=== PATIENT | female | born 2000 | race Caucasian/White ===

== ENCOUNTER 2020-12-12 20:30 | Emergency (ER) | payer OTHER ==
[~2020-12-12] VITALS: Ht 165.1 cm; Wt 88.3 kg
[2020-12-12 21:54] LABS: BASO % 0.4 % (0.0-1.0); EOS # 0.1 10^3/uL (0.0-0.5); EOS % 0.6 % (0.0-3.0); HEMATOCRIT 42.3 % (36.0-47.0); HEMOGLOBIN 13.4 g/dl (12.0-15.5); LYMPH # 2.4 10^3/uL (1.5-5.0); LYMPH % 21.6 % (24.0-44.0); MEAN CORPUSCULAR HEMOGLOBIN 26.3 pg (27.0-33.0); MEAN CORPUSCULAR HGB CONC 31.7 g/dl (32.0-36.5); MEAN CORPUSCULAR VOLUME 83.1 fl (80.0-96.0); MONO % 8.9 % (2.0-8.0); NEUTROPHILS # 7.4 10^3/uL (1.5-8.5); PLATELET COUNT, AUTOMATED 323 10^3/uL (150-450); RED BLOOD COUNT 5.09 10^6/uL (4.00-5.40); WHITE BLOOD COUNT 10.9 10^3/uL (4.0-10.0)
[2020-12-12] MEDS ORDERED: MAALOX 30 ML SUSP *UDC PO ONE (22:45)
[2020-12-12] MEDS ORDERED: LIDOCAINE VISCOUS 2% SOLN 15ML UDC MT ONE (22:45)
[2020-12-12 23:10] VITALS: BP 145/74
[2020-12-12 23:25] LABS: ALBUMIN 4.1 GM/DL (3.2-5.2); ALT/SGPT 115 U/L (12-78); BILIRUBIN,DIRECT < 0.1 MG/DL (0.0-0.2); BILIRUBIN,TOTAL 0.2 MG/DL (0.2-1.0); BLOOD UREA NITROGEN 10 MG/DL (7-18); CALCIUM LEVEL 9.8 MG/DL (8.5-10.1); CARBON DIOXIDE LEVEL 26 MEQ/L (21-32); CHLORIDE LEVEL 106 MEQ/L (98-107); CK-MB VALUE MASS < 1.0 NG/ML (<3.6); CPK CREATINE PHOSPHOKINASE 264 U/L (26-192); CREATININE FOR GFR 0.67 MG/DL (0.55-1.30); GLOMERULAR FILTRATION RATE > 60.0 (>60); GLUCOSE, FASTING 90 MG/DL (70-100); HCG, SERUM QUANTITATIVE 49905 MIU/ML; LIPASE 102 U/L (73-393); MB/CK RELATIVE INDEX 0.38 (< OR =4); POTASSIUM SERUM 4.3 MEQ/L (3.5-5.1); SODIUM LEVEL 138 MEQ/L (136-145); TROPONIN I < 0.02 NG/ML (< 0.10)
--- NOTE | 2020-12-12 23:28 | REPVR ---
PROCEDURE INFORMATION: Exam: US First Trimester, Transabdominal Exam date and time: 12/12/2020 11:08 PM Age: 20 years old Clinical indication: Lmp or gestational age (in weeks): 10/23/2020; Other: Vaginal spotting; ; Additional info: Spotting and cramping; Lmp-10/23/20 TECHNIQUE: Imaging protocol: Real-time transabdominal obstetrical ultrasound of the maternal pelvis and a first trimester , less than 14 weeks 0 days, with image documentation. COMPARISON: No relevant prior studies available. FINDINGS: Gestation: Gestational sac within the uterus with pole and yolk sac. Embryonic/ heart rate: heartbeat of 120 bpm. Placenta: Small subchorionic hemorrhage measuring 14 x 4 x 16 mm. Amniotic fluid: Amniotic fluid is normal for gestational age. BIOMETRY: [place]-Rump length: [place]-rump length is 4.5 mm suggesting an age of 6 weeks 2 days. The EDC is 08/05/2021. MATERNAL: Uterus: Unremarkable. Cervix: Unremarkable. Left adnexa: The left ovary measures 3.3 x 2.5 x 3.4 cm with a cyst measuring 2.2 x 2.1 x 1.9 cm. Intraperitoneal space: No intraperitoneal free fluid. IMPRESSION: 1. Early single live intrauterine gestation with an estimated age of 6 weeks 2 days. The EDC is 08/05/2021. 2. Small subchorionic hemorrhage measuring 14 x 4 x 16 mm. 3. Left ovarian cyst measuring 2.2 x 2.1 x 1.9 cm. Electronically signed by: Feliberto Don On 12/12/2020 23:28:12 PM
--- NOTE | 2020-12-12 23:38 | REPVR ---
PROCEDURE INFORMATION: Exam: XR Chest Exam date and time: 12/12/2020 11:29 PM Age: 20 years old Clinical indication: Shortness of breath; Additional info: SOB, chest tightness TECHNIQUE: Imaging protocol: XR of the chest. Views: 1 view. COMPARISON: No relevant prior studies available. FINDINGS: Lungs: There is decreased inflation of the lungs. No focal infiltrates. Pleural spaces: Unremarkable. No pleural effusion. No pneumothorax. Heart/Mediastinum: Unremarkable. No cardiomegaly. Bones/joints: Unremarkable. IMPRESSION: Essentially negative chest. Electronically signed by: Feliberto Don On 12/12/2020 23:37:56 PM
[2020-12-12] MEDS ORDERED: CEPHALEXIN 500 MG CAP PO ONE (23:50)
[2020-12-12] MEDS ORDERED: CEPH500C PO (23:51)
== END 2020-12-13 00:27 | disposition home or self-care (01) ==
LOC: M ED 20:30
DX: O46.91 Antepartum hemorrhage, unspecified, first trimester (principal); O99.511 Diseases of the respiratory system complicating pregnancy, first trimester; O23.41 Unspecified infection of urinary tract in pregnancy, first trimester; O99.331 Smoking (tobacco) complicating pregnancy, first trimester; Z3A.01 Less than 8 weeks gestation of pregnancy

== ENCOUNTER → 2020-12-25 | Outpatient (REF) | payer OTHER ==
[~2020-12-25] MED LIST: CEPH500C PO
[2020-12-25 17:27] LABS: HEMATOCRIT 40.8 % (36.0-47.0); MEAN CORPUSCULAR HEMOGLOBIN 26.6 pg (27.0-33.0); MEAN CORPUSCULAR HGB CONC 31.9 g/dl (32.0-36.5); MEAN CORPUSCULAR VOLUME 83.4 fl (80.0-96.0); PLATELET COUNT, AUTOMATED 304 10^3/uL (150-450); RED BLOOD COUNT 4.89 10^6/uL (4.00-5.40); WHITE BLOOD COUNT 8.6 10^3/uL (4.0-10.0)
[2020-12-25 17:32] LABS: ALBUMIN 3.6 GM/DL (3.2-5.2); ALT/SGPT 25 U/L (12-78); BILIRUBIN,DIRECT 0.1 MG/DL (0.0-0.2); BILIRUBIN,TOTAL 0.3 MG/DL (0.2-1.0); CREATININE FOR GFR 0.63 MG/DL (0.55-1.30); GLOMERULAR FILTRATION RATE > 60.0 (>60); LDH LACTATE DEHYDROGENASE 128 U/L (84-246); TOTAL PROTEIN 6.6 GM/DL (6.4-8.2)
[2020-12-25 18:21] LABS: HEPATITIS C VIRUS ABY INDEX < 0.0 INDEX (<0.8)
[2020-12-25 18:22] LABS: HIV 1&2 SCREEN CENTAUR NEGATIVE (NEGATIVE)
== END ==
LOC: M PLALAB 15:25
PROVIDERS: ATTEND Advanced Practice Midwife
DX: Z34.81 Encounter for supervision of other normal pregnancy, first trimester (principal); Z3A.09 9 weeks gestation of pregnancy

== ENCOUNTER → 2021-01-05 | Outpatient (CLI) | payer OTHER ==
[2021-01-05 15:43] LABS: TOTAL PROTEIN,RANDOM URINE 15.5 MG/DL (0.0-12.0)
== END ==
LOC: M PLALAB 14:06
PROVIDERS: ATTEND Specialist
DX: O99.281 Endocrine, nutritional and metabolic diseases complicating pregnancy, first trimester (principal); E03.9 Hypothyroidism, unspecified; Z3A.09 9 weeks gestation of pregnancy

== ENCOUNTER → 2021-01-22 | Outpatient (REF) | payer OTHER | LOC: M SFHCPLAZ 18:27 | PROVIDERS: ATTEND Advanced Practice Midwife | DX: O99.282 Endocrine, nutritional and metabolic diseases complicating pregnancy, second trimester (principal) ==

== ENCOUNTER → 2021-01-26 | Outpatient (REF) | payer OTHER ==
[2021-01-26 17:43] LABS: ALBUMIN 3.3 GM/DL (3.2-5.2); ALT/SGPT 36 U/L (12-78); BILIRUBIN,TOTAL 0.3 MG/DL (0.2-1.0); BLOOD UREA NITROGEN 8 MG/DL (7-18); CARBON DIOXIDE LEVEL 23 MEQ/L (21-32); CHLORIDE LEVEL 105 MEQ/L (98-107); CREATININE FOR GFR 0.75 MG/DL (0.55-1.30); GLOMERULAR FILTRATION RATE > 60.0 (>60); GLUCOSE, FASTING 107 MG/DL (70-100); POTASSIUM SERUM 4.1 MEQ/L (3.5-5.1); SODIUM LEVEL 135 MEQ/L (136-145); TOTAL PROTEIN 6.9 GM/DL (6.4-8.2)
[2021-01-26 17:46] LABS: FREE T4 1.1 NG/DL (0.76-1.46); THYROID STIMULATING HORMONE 3.22 uIU/ML (0.358-3.740)
== END ==
LOC: M PLALAB 14:47
PROVIDERS: ATTEND Advanced Practice Midwife
DX: O99.282 Endocrine, nutritional and metabolic diseases complicating pregnancy, second trimester (principal); Z87.19 Personal history of other diseases of the digestive system; Z87.59 Personal history of other complications of pregnancy, childbirth and the puerperium

== ENCOUNTER 2021-02-20 22:13 | Emergency (ER) | payer OTHER ==
[~2021-02-20] VITALS: Ht 165.1 cm; Wt 84.3 kg
[2021-02-20] MEDS ORDERED: ONDA4TAB6 PO (22:21)
[2021-02-20] MEDS ORDERED: LEVO25TA5 PO (22:21)
[2021-02-21] MEDS ORDERED: METOCLOPRAMIDE INJ 10MG/2ML VIAL (J2765 PER 1) IV ONE (01:35)
[2021-02-21] MEDS ORDERED: NS 1,000 ML IV ONE (01:35)
[2021-02-21 01:56] LABS: BASO % 0.2 % (0.0-1.0); EOS # 0.1 10^3/uL (0.0-0.5); EOS % 0.8 % (0.0-3.0); HEMATOCRIT 39.3 % (36.0-47.0); HEMOGLOBIN 13.1 g/dl (12.0-15.5); LYMPH # 2.3 10^3/uL (1.5-5.0); LYMPH % 25.2 % (24.0-44.0); MEAN CORPUSCULAR HEMOGLOBIN 27.2 pg (27.0-33.0); MEAN CORPUSCULAR HGB CONC 33.3 g/dl (32.0-36.5); MEAN CORPUSCULAR VOLUME 81.7 fl (80.0-96.0); MONO # 0.8 10^3/uL (0.0-0.8); MONO % 8.6 % (2.0-8.0); NEUTROPHILS # 5.8 10^3/uL (1.5-8.5); PLATELET COUNT, AUTOMATED 295 10^3/uL (150-450); RED BLOOD COUNT 4.81 10^6/uL (4.00-5.40)
[2021-02-21] MEDS ORDERED: ACETAMINOPHEN TAB 650MG DOSE (2X325MG) PO ONE (02:20)
[2021-02-21 02:22] LABS: ALBUMIN 3.2 GM/DL (3.2-5.2); ALT/SGPT 26 U/L (12-78); BILIRUBIN,DIRECT < 0.1 MG/DL (0.0-0.2); BILIRUBIN,TOTAL 0.3 MG/DL (0.2-1.0); BLOOD UREA NITROGEN 7 MG/DL (7-18); CALCIUM LEVEL 8.4 MG/DL (8.5-10.1); CARBON DIOXIDE LEVEL 27 MEQ/L (21-32); CHLORIDE LEVEL 104 MEQ/L (98-107); CREATININE FOR GFR 0.56 MG/DL (0.55-1.30); GLOMERULAR FILTRATION RATE > 60.0 (>60); GLUCOSE, FASTING 74 MG/DL (70-100); LIPASE 108 U/L (73-393); SODIUM LEVEL 137 MEQ/L (136-145); TOTAL PROTEIN 6.5 GM/DL (6.4-8.2)
--- NOTE | 2021-02-21 03:59 | REPVR ---
PROCEDURE INFORMATION: Exam: US Abdomen, Limited; Right Upper Quadrant Exam date and time: 02/21/2021 1:59 AM Age: 20 years old Clinical indication: Abdominal pain; Epigastric; Prior surgery; Surgery date: 6+ months; Surgery type: S/P cholecystectomy; Additional info: Ruq pain TECHNIQUE: Imaging protocol: US abdomen. Real time ultrasound with image documentation. Limited exam focused on the right upper quadrant. COMPARISON: No relevant prior studies available. FINDINGS: Liver: The liver demonstrates no focal defects. Gallbladder: Status post cholecystectomy. Common bile duct: The CBD measures 3 mm. Pancreas: The visualized pancreas appears normal. Right kidney: The right kidney measures 10.4 cm with no hydronephrosis. IMPRESSION: 1. Status post cholecystectomy. 2. Otherwise negative right upper quadrant sonogram. Electronically signed by: Feliberto Don On 02/21/2021 03:59:36 AM
[2021-02-21] MEDS ORDERED: METO-535 PO (04:24)
[2021-02-21 04:36] VITALS: BP 110/59
== END 2021-02-21 04:39 | disposition home or self-care (01) ==
LOC: M ED 22:13
DX: O21.9 Vomiting of pregnancy, unspecified (principal); O99.280 Endocrine, nutritional and metabolic diseases complicating pregnancy, unspecified trimester; O99.330 Smoking (tobacco) complicating pregnancy, unspecified trimester
CPT/HCPCS: 76705; 80048; 80076; 82239; 83690; 85025; 96361; 96374; 99284; J2765

== ENCOUNTER → 2021-03-02 | Outpatient (REF) | payer OTHER ==
[~2021-03-02] MED LIST changes: +LEVO25TA5 PO; +METO-535 PO; +ONDA4TAB6 PO
== END ==
LOC: M SFHCPLAZ 14:53
PROVIDERS: ATTEND Physician Assistant
DX: R09.81 Nasal congestion (principal)
CPT/HCPCS: 87426; G0463; U0003

== ENCOUNTER → 2021-03-19 | Outpatient (CLI) | payer OTHER ==
--- NOTE | 2021-03-19 14:37 | REP ---
INDICATION: ANATOMY. COMPARISON: 12/12/2020. TECHNIQUE: Multiple ultrasonographic images of the gravid uterus. FINDINGS: There is a single intrauterine gestation. position is variable. heart rate is 146 beats per minute. The placenta is fundal. There is no placenta previa. The umbilical cord inserts centrally onto the placenta. There is a three-vessel cord. Subjectively the amniotic fluid volume is normal. The cervix measures 3.9 cm length. The composite ultrasound gestational age by the study today is 21 weeks 0 days with an JEWEL of 07/30/2021. Gestational age by the 1st ultrasound is 20 weeks 0 days with an JEWEL of 08/06/2021. Gestational age by LMP is 21 weeks 0 days with an JEWEL of 07/30/2021. Estimated weight is 394 g/0 lb, 13 oz. This is the 46th percentile for 21 weeks 0 days. The following anatomic structures are identified and are unremarkable: Cranium, cavum septum pellucidum, falx, intracranial ventricles, choroid plexus, cerebellum, cisterna magna, facial profile, orbits, upper lip, lungs, cardiac rhythm, four-chamber heart, cardiac right left ventricular outflow tracts, diaphragm, stomach, abdominal wall, right and left kidneys, bladder, spine, or left upper extremities, right left lower extremities, 3 vessel cord. IMPRESSION: No anomalies are identified. <Electronically signed by Shad Miguel > 03/19/21 [id number]
== END ==
LOC: M WHC 11:25
PROVIDERS: ATTEND Advanced Practice Midwife
DX: O99.282 Endocrine, nutritional and metabolic diseases complicating pregnancy, second trimester (principal); Z3A.21 21 weeks gestation of pregnancy; E88.9 Metabolic disorder, unspecified

== ENCOUNTER → 2021-04-22 | Outpatient (CLI) | payer OTHER ==
[2021-04-22 15:27] LABS: HEMATOCRIT 37.2 % (36.0-47.0); MEAN CORPUSCULAR HEMOGLOBIN 27.5 pg (27.0-33.0); MEAN CORPUSCULAR HGB CONC 32.3 g/dl (32.0-36.5); MEAN CORPUSCULAR VOLUME 85.3 fl (80.0-96.0); PLATELET COUNT, AUTOMATED 301 10^3/uL (150-450); RED BLOOD COUNT 4.36 10^6/uL (4.00-5.40); WHITE BLOOD COUNT 10.2 10^3/uL (4.0-10.0)
[2021-04-22 16:00] LABS: ALBUMIN 2.8 GM/DL (3.2-5.2); ALT/SGPT 23 U/L (12-78); BILIRUBIN,DIRECT < 0.1 MG/DL (0.0-0.2); BILIRUBIN,TOTAL 0.3 MG/DL (0.2-1.0); FREE T4 1.03 NG/DL (0.76-1.46); GLUCOSE CHALLENGE TEST 1 HOUR 91 MG/DL (LESS THAN 140); TOTAL PROTEIN 6.7 GM/DL (6.4-8.2)
== END ==
LOC: M PLALAB 11:05
PROVIDERS: ATTEND Advanced Practice Midwife
DX: O99.282 Endocrine, nutritional and metabolic diseases complicating pregnancy, second trimester (principal); Z36.89 Encounter for other specified antenatal screening; E03.9 Hypothyroidism, unspecified
CPT/HCPCS: 36415; 80076; 81002; 82239; 82950; 84439; 84443; 85027; 86850; 86900; 86901; 87086; G0463

== ENCOUNTER → 2021-06-03 | Outpatient (CLI) | payer OTHER ==
[~2021-06-03] MED LIST changes: +ACET325C5 PO; +D-ME1CAP36 PO; +MELA10CA PO; +PROM25TA12 PO; +TUMS500C PO; +URSO300C3 PO
[2021-06-03 17:54] LABS: ALBUMIN 2.7 GM/DL (3.2-5.2); BILIRUBIN,DIRECT 0.1 MG/DL (0.0-0.2); BILIRUBIN,TOTAL 0.3 MG/DL (0.2-1.0); TOTAL PROTEIN 6.5 GM/DL (6.4-8.2)
== END ==
LOC: M PLALAB 15:15
PROVIDERS: ATTEND Obstetrics & Gynecology
DX: Z87.59 Personal history of other complications of pregnancy, childbirth and the puerperium (principal)
CPT/HCPCS: 36415; 80076; 82239; G0463

== ENCOUNTER → 2021-06-24 | Outpatient (CLI) | payer OTHER ==
[~2021-06-24] MED LIST changes: -ACET325C5 PO; -D-ME1CAP36 PO; -MELA10CA PO; -PROM25TA12 PO; -TUMS500C PO; -URSO300C3 PO
--- NOTE | 2021-06-24 13:57 | REP ---
INDICATION: GROWTH LIVER AND BILIARY TRACT DISORDER IN . COMPARISON: 03/19/2021. TECHNIQUE: Real-time sonographic evaluation of the gravid uterus performed. FINDINGS: Estimated gestational age is34 weeks 6 days, EDC 07/30/2021. Today's measurements indicate appropriate growth. Presentation: Cephalic Placenta fundal, grade 2, without evidence of placenta previa. heart rate is recorded at 143 beats per minute. Amniotic fluid is subjectively normal. OH 14.5, normal 7.9-24.9. Cervix is not visualized due to shadowing from the cranium. SD ratio umbilical artery 2.17, normal 1.69-3.60. RI 0.54, normal 0.46-0.72. Biometry chart: BPD: 85 mm, 34 weeks 3 days, 43rd percentile. HC: 311 mm, 34 weeks 5 days, 47 percentile AC: 315 mm, 35 weeks 3 days, 57th percentile Femur length: 66 mm, 34 weeks 1 days, 39th percentile HC to AC ratio: 0.99, normal range 0.94-1.13. Estimated weight: 2541g, 46th percentile. IMPRESSION: Viable single intrauterine gestation as above. <Electronically signed by Shad Garcia > 06/24/21 0006
== END ==
LOC: M WHC 09:27
PROVIDERS: ATTEND Advanced Practice Midwife
DX: O26.613 Liver and biliary tract disorders in pregnancy, third trimester (principal); Z3A.34 34 weeks gestation of pregnancy

== ENCOUNTER → 2021-06-30 | Outpatient (CLI) | payer OTHER ==
[~2021-06-30] MED LIST changes: +ACET325C5 PO; +D-ME1CAP36 PO; +MELA10CA PO; +PROM25TA12 PO; +TUMS500C PO; +URSO300C3 PO
[2021-06-30 15:34] LABS: ALBUMIN 2.5 GM/DL (3.2-5.2); BILIRUBIN,DIRECT 0.2 MG/DL (0.0-0.2); BILIRUBIN,TOTAL 0.4 MG/DL (0.2-1.0); TOTAL PROTEIN 6.3 GM/DL (6.4-8.2)
== END ==
LOC: M PLALAB 12:32
PROVIDERS: ATTEND Obstetrics & Gynecology
DX: O26.613 Liver and biliary tract disorders in pregnancy, third trimester (principal); K76.0 Fatty (change of) liver, not elsewhere classified; Z3A.35 35 weeks gestation of pregnancy
CPT/HCPCS: 36415; 59025; 80076; 82239; 87081; G0463

== ENCOUNTER 2021-07-04 22:02 | Outpatient (CLI) | payer OTHER ==
[~2021-07-04] VITALS: Ht 165.1 cm; Wt 85.4 kg
[~2021-07-04 22:02] MED LIST changes: -ACET325C5 PO; -D-ME1CAP36 PO; -MELA10CA PO; -PROM25TA12 PO; -TUMS500C PO; -URSO300C3 PO
[2021-07-04 22:23] VITALS: BP 116/77
[2021-07-04] MEDS ORDERED: TUMS500C PO (22:37)
[2021-07-04] MEDS ORDERED: D-ME1CAP36 PO (22:37)
[2021-07-04] MEDS ORDERED: URSO300C3 PO (22:38)
[2021-07-04] MEDS ORDERED: PROM25TA12 PO (22:42)
--- NOTE | 2021-07-04 23:26 | IPNPDOC ---
Text Note Date of Service The patient was seen on 07/04/21. NOTE S: Pt is a 21yo G 3 P 0111 at 36W2D EGA who presented to the ER with a swollen, painful toe. The patient was sent to labor and delivery triage because she also complained of intermittent pelvic cramping that was worsening over the past few days. Patient denies contractions leaking of fluid, endorses light pink spotting after wiping. Reports good movement O: BP116/77 HR106 T97.7 FHT 120 mod +accel no decel TOCO irregular, irritable SVE FT/long/high, posterior and firm A/P: Pt is a 21yo at 36w2d EGA who presents with toe pain and cramping Dispo: d/c'ed to ER for evaluation of toe pain. Pt has appt in office for NST a nd care. VS,Fishbone, I+O VS, Fishbone, I+O Vital Signs Date Time Temp Pulse Resp B/P (MAP) Pulse Ox O2 Delivery O2 Flow Rate FiO2 07/04/21 22:23 97.7 106 18 116/77 (90) GINA DIA MD Jul 04, 2021 23:26
== END 2021-07-04 23:18 | disposition home or self-care (01) ==
LOC: M LDO 22:02
PROVIDERS: ATTEND Obstetrics & Gynecology
DX: O26.893 Other specified pregnancy related conditions, third trimester (principal); R25.2 Cramp and spasm; Z3A.36 36 weeks gestation of pregnancy
CPT/HCPCS: 59025; G0378; G0463; U0002

== ENCOUNTER 2021-07-04 23:39 | Emergency (ER) | payer OTHER ==
[~2021-07-04] VITALS: Ht 165.1 cm; Wt 84.5 kg
[~2021-07-04 23:39] MED LIST changes: +D-ME1CAP36 PO; +PROM25TA12 PO; +TUMS500C PO; +URSO300C3 PO
[2021-07-04 23:40] VITALS: BP 111/74
--- OUTSIDE RECORDS SUMMARY | 2021-07-04 23:45 | CCD ---
Author Author [facility] Organization [facility] Address Unknown Phone Unavailable Care Team Providers Care Litigation Paralegal Name Role Phone Caitlin Hassan Unavailable PROBLEMS Type Condition ICD9-CM Code [id number] Code Onset Dates Condition S tatus W/U Status Risk SNOMED Code Notes Problem Scoliosis, unspecified scoliosis type, unspecifi ed spinal region M41.9 Active confirmed 513556470 Problem Anxiety F41.9 Active confirmed 06840460 Problem Supervision of other normal Z34.80 Ac tive confirm 217174551 Problem History of hypothyroidism Z86.39 Active confirmed 349918844 ALLERGIES No Known Allergies ENCOUNTERS from 1998 to 2021-05-07 Encounter Location Date Provider Diagnosis [facility] [address] [place] [address] [place] [address] Apr, Caitlin Hassan Dysuria R30.0 ; Othe r specified diseases and conditions complicating O99.891 and 25 weeks gestation of Z3A.25 IMMUNIZATIONS No Information SOCIAL HISTORY Tobacco Use: Social History Observation Description Date Details (start date - stop date) Former Smoker Sex Assigned At : Social History Observation Description Sex Assigned At Unknown Education: Question Answer Notes Level of Education: Not Finished College Audit Question Answer Notes Total Score: 0 Interpretation: Alcohol Education Language: Question Answer Notes Languages spoken: Divehi Baptism: Question Answer Notes Baptism 99 Other Mormon Sexual Hx: Question Answer Notes Had sex in the last 12 months (vaginal, oral, or anal)? Yes LMP: 10/2020 Have you ever had an STD? Yes Prevention Strategies discussed: Other with Men only Use protection? No GC? Yes Chlamydia? Yes Drug and Alcohol Question Answer Notes Total Score: 0 Interpretation: No problems reported Tobacco Use: Question Answer Notes Are you a: former smoker quit 10/2020 How long has it been since you last smoked? 1-3 months REASON FOR REFERRAL No Information VITAL SIGNS Weight 185.8 lbs Apr, Weight-kg 84.28 kg Apr, Height 65 in Apr, BMI 30.919 kg/m2 Apr, Blood pressure systolic 118 mm Hg Apr, Blood pressure diastolic 76 mm Hg Apr, MEDICATIONS Medication SIG (Take, Route, Frequency, Duration) Notes Start Da te End Date Status 27-1 MG 1 tablet Orally Once a day Active Amoxicillin 875 MG 1 tablet Orally Twice a day for 7 day(s) Feb, Not-Taking Unisom 25 MG 1 tablet at bedtime as needed Orally Once a day for 30 day(s) Active Vitamin B6 100 MG 1 tablet Orally Once a day for 30 day(s) Active Macrobid 100 MG 1 capsule twice a day Orally twice DAY for 7 da ys Apr, Active Ondansetron 4 MG 1 tablet on the tongue and a llow to dissolve Orally every 6 hours as needed for nausea for 30 day(s) Feb, Active Levothyroxine Sodium 50 MCG 1 tablet in the morning on an empty stomach Orally Once a day for 30 day(s) December, Not-Pantera ing Levothyroxine Sodium 25 MCG 1 tablet in the morning on an empty stomach Orally Once a day for 60 day(s) Feb, Active Robitussin Chest Congestion 100 MG/5ML 10 ml as needed Orally every 4 hrs Not-Taking PROCEDURES from 1998 to 2021-05-07 Procedure Date Ordered Result Body Site URINE-NO MICRO 2021-04-22 N/A RESULTS No Results REASON FOR VISIT 4WK PN MEDICAL (GENERAL) HISTORY Type Description Date Medical History Cholestasis with prior Medical History scoliosis Surgical History Adenoidectomy Surgical History Cholecystectomy 2017 Surgical History wisdom tooth extraction 2013 Hospitalization History childbirth Hospitalization History Cholestasis, admitted x 1 week 2017 Goals Section No Information Health Concerns No Information MEDICAL EQUIPMENT No Information MENTAL STATUS No Information FUNCTIONAL STATUS No Information ASSESSMENTS Encounter Date Diagnosis Assessment Notes Treatment Notes Treatm ent Clinical Notes Apr, Dysuria (ICD-10 - R30.0) Apr, Other specified diseases and conditions complicating (ICD-10 - O99.891) Apr, 25 weeks gestation of (ICD-10 - Z3A.25 ) PLAN OF TREATMENT Medication Medication Name Sig Start Date Stop Date Macrobid 100 MG 1 capsule twice a day Orally twice DAY for 7 da ys Apr, Treatment Notes Test Name Order Date URINE CULTURE 2021-04-22 Next Appt Details 4 Weeks Reason:pn Provider Name:Roderick Balderas, 2021-05-20 03:30:00 PM, [address] [place] [address], [address] [place] [address], [place], [address], Provider Name:Caitlin Hassan, 2021-06-03 0 2:00:00 PM, [address] [place] [address], [address] [place] [address], [place], [address], Provider Name:Chastity Vaughn, 2021-06-17 02:40:00 PM, [address] [place] [address], , [place], [address], Follow Up:4 Weekspn Insurance Providers Payer Name Payer Address Payer Phone Insured Name Patient Relati onship to Insured Coverage Start Date Coverage End Date [facility] [employer] [address] [place] [id number] PAUL RAHMAN self
--- OUTSIDE RECORDS SUMMARY | 2021-07-04 23:45 | CCD ---
Author Author [facility] Organization [facility] Address Unknown Phone Unavailable Care Team Providers Care Brazer Helper Induction Name Role Phone Caitlin Hassan Unavailable PROBLEMS Type Condition ICD9-CM Code [id number] Code Onset Dates Condition S tatus W/U Status Risk SNOMED Code Notes Problem Anxiety F41.9 Active confirmed 04377835 Problem Obstruction of bile duct K83.1 Active confirmed 15067895 Problem Supervision of other normal Z34.80 Ac tive confirm 459473868 Problem History of hypothyroidism Z86.39 Active confirmed 930884016 Problem Scoliosis, unspecified scoliosis type, unspecifi ed spinal region M41.9 Active confirmed 280692247 ALLERGIES No Known Allergies ENCOUNTERS from 1998 to 2021-06-26 Encounter Location Date Provider Diagnosis [facility] [address] [place] [address] [place] [address] May, Caitlin Mo Personal history of other diseases of the digestive system Z87.19 and Personal history of other complications of , childbirth and the puerperium Z87.59 IMMUNIZATIONS Vaccine Route Administration Date Status TDAP 0.5mL Boostrix IM Intramuscular Jun 17, 2021 Administere d SOCIAL HISTORY Tobacco Use: Social History Observation Description Date Details (start date - stop date) Former Smoker Sex Assigned At : Social History Observation Description Sex Assigned At Unknown Education: Question Answer Notes Level of Education: Not Finished College Audit Question Answer Notes Total Score: 0 Interpretation: Alcohol Education Language: Question Answer Notes Languages spoken: Cambodian Catholic: Question Answer Notes Catholic 99 Other Adventism Drug and Alcohol Question Answer Notes Total Score: 0 Interpretation: No problems reported Alcohol Screening: Question Answer Notes Did you have a drink containing alcohol in the past year? No Points 0 Interpretation Negative Tobacco Use: Question Answer Notes Are you a: former smoker quit 10/2020 How long has it been since you last smoked? 1-3 months REASON FOR REFERRAL No Information VITAL SIGNS Weight 187.2 lbs May, Weight-kg 84.91 kg May, Height 65 in May, BMI 31.152 kg/m2 May, Blood pressure systolic 120 mm Hg May, Blood pressure diastolic 70 mm Hg May, MEDICATIONS Medication SIG (Take, Route, Frequency, Duration) Notes Start Da te End Date Status Unisom 25 MG 1 tablet at bedtime as needed Orally Once a day for 30 day(s) Active Amoxicillin 875 MG 1 tablet Orally Twice a day for 7 day(s) Feb, Not-Taking Ursodiol 300 MG 1 capsule Orally Twice a day for 30 day(s) Jun, Active Vitamin B6 100 MG 1 tablet Orally Once a day for 30 day(s) Active Robitussin Chest Congestion 100 MG/5ML 10 ml as needed Orally every 4 hrs Not-Taking Promethazine HCl 12.5 MG 1 tablet as needed Orally every 6 hrs f or 30 day(s) May, Active Levothyroxine Sodium 25 MCG 1 tablet in the morning on an empty stomach Orally Once a day for 60 day(s) Feb, Not-Pantera ing 27-1 MG 1 tablet Orally Once a day Active Levothyroxine Sodium 50 MCG 1 tablet in the morning on an empty stomach Orally Once a day for 30 day(s) December, Not-Pantera ing PROCEDURES No Information RESULTS Component Value Reference Range LIVER PROFILE Reviewed date:06/13/2021 21:54:59 Interpretation: Performing Lab:[facility], [facility] [id number] , ,[place] [address] AST/SGOT 19 7-37 ALT/SGPT 31 12-78 ALKALINE PHOSPHATASE 241 45-117 BILIRUBIN,TOTAL 0.3 0.2-1.0 BILIRUBIN,DIRECT 0.1 0.0-0.2 TOTAL PROTEIN 6.5 6.4-8.2 ALBUMIN 2.7 3.2-5.2 ALBUMIN/GLOBULIN RATIO 0.7 1.2-2.2 BILE ACIDS FRACTIONATED Reviewed date:06/17/2021 17:00:32 Interpretation: Performing Lab:[facility], [facility] [address] [facility] [address] , ,[place] [address] BILE ACIDS FRACTIONATED 18.8 0.0-10.0 REASON FOR VISIT 2 WK PN MEDICAL (GENERAL) HISTORY Type Description Date Medical History Cholestasis with prior Medical History scoliosis Surgical History Adenoidectomy Surgical History Cholecystectomy 2017 Surgical History wisdom tooth extraction 2013 Hospitalization History childbirth Hospitalization History Cholestasis, admitted x 1 week 2016 Goals Section No Information Health Concerns No Information MEDICAL EQUIPMENT No Information MENTAL STATUS No Information FUNCTIONAL STATUS No Information ASSESSMENTS Encounter Date Diagnosis Assessment Notes Treatment Notes Treatm ent Clinical Notes May, Personal history of other di seases of the digestive system (ICD-10 - Z87.19) May, Personal history of other co mplications of , childbirth and the puerperium (ICD-10 - Z87.59) PLAN OF TREATMENT Next Appt Details Provider Name:Brigette Malin, 2021-06-30 11:00:00 AM, [address] [place] [phone], [place], [address], Provider Name:Alfred Castellanos, 10:00:00 AM, [address] [place] [phone], [place], [address], Provider Name:Chastity Vaughn, 2021-07-17 02:40:00 PM, [address] [place] [phone], [place], [address], Insurance Providers Payer Name Payer Address Payer Phone Insured Name Patient Relati onship to Insured Coverage Start Date Coverage End Date [facility] [employer] [address] [place] [id number] PAUL RAHMAN self
--- OUTSIDE RECORDS SUMMARY | 2021-07-04 23:45 | CCD ---
Author Author [facility] Organization [facility] Address Unknown Phone Unavailable Care Team Providers Care Glass Handler Name Role Phone IsaiasKirk Unavailable PROBLEMS Type Condition ICD9-CM Code [id number] Code Onset Dates Condition S tatus W/U Status Risk SNOMED Code Notes Problem Scoliosis, unspecified scoliosis type, unspecifi ed spinal region M41.9 Active confirmed 886848172 Problem Anxiety F41.9 Active confirmed 24630989 Problem Supervision of other normal Z34.80 Ac tive confirm 668908463 Problem History of hypothyroidism Z86.39 Active confirmed 617308459 ALLERGIES No Known Allergies ENCOUNTERS from 1998 to 2021-06-04 Encounter Location Date Provider Diagnosis [facility] [address] [place] [address] [place] [address] May, Kirk Esparza IMMUNIZATIONS No Information SOCIAL HISTORY Tobacco Use: Social History Observation Description Date Details (start date - stop date) Former Smoker Sex Assigned At : Social History Observation Description Sex Assigned At Unknown Education: Question Answer Notes Level of Education: Not Finished College Audit Question Answer Notes Total Score: 0 Interpretation: Alcohol Education Language: Question Answer Notes Languages spoken: Barbadian Synagogue: Question Answer Notes Synagogue 99 Other Worship Drug and Alcohol Question Answer Notes Total [...] REASON FOR REFERRAL No Information VITAL SIGNS No information MEDICATIONS Medication SIG (Take, Route, Frequency, Duration) [...] day for 60 day(s) Feb, Not-Pantera ing Robitussin Chest Congestion 100 MG/5ML 10 ml as needed Orally every 4 hrs Not-Taking Unisom 25 MG 1 tablet at bedtime as needed Orally Once a day for 30 day(s) Active Ondansetron 4 MG 1 tablet on the tongue and a llow to dissolve Orally every 6 hours as needed for nausea for 30 day(s) Feb, Active Vitamin B6 100 MG 1 tablet Orally Once a day for 30 day(s) Active Amoxicillin 875 MG 1 tablet Orally Twice a day for 7 day(s) Feb, Not-Taking PROCEDURES No Information RESULTS No Results REASON FOR VISIT concerns MEDICAL (GENERAL) HISTORY Type Description Date Medical History Cholestasis with prior Medical History scoliosis Surgical History Adenoidectomy Surgical History Cholecystectomy 2017 Surgical History wisdom tooth extraction 2013 Hospitalization History childbirth Hospitalization History Cholestasis, admitted x 1 week 2017 Goals Section No Information Health Concerns No Information MEDICAL EQUIPMENT No Information MENTAL STATUS No Information FUNCTIONAL STATUS No Information ASSESSMENTS No Information PLAN OF TREATMENT Next Appt Details Provider Name:Chastity Vaughn, 2021-06-17 02:40:00 PM, [address] [place], [place] [id number] [address], [address], Provider Name:Chastity Vaughn, 2021-07-03 02:40:00 PM, [address] [place], [place] [phone], [place], [address], Provider Name:Chastity Vaughn, 2021-07-17 02:40:00 PM, [address] [place], [place] [address] [place] [address], [address], Insurance Providers Payer Name Payer Address Payer Phone Insured Name Patient Relati onship to Insured Coverage Start Date Coverage End Date [facility] [address] [place] [id number] PAUL RAHMAN self
--- OUTSIDE RECORDS SUMMARY | 2021-07-04 23:45 | CCD ---
Author Author [facility] Organization [facility] Address Unknown Phone Unavailable Care Team Providers Care Truck Hop Name Role Phone Brigette Malin Unavailable PROBLEMS Type Condition ICD9-CM Code [id number] Code Onset Dates Condition S tatus W/U Status Risk SNOMED Code Notes Problem Scoliosis, unspecified scoliosis type, unspecifi ed spinal region M41.9 Active confirmed 317479105 Problem Anxiety F41.9 Active confirmed 61417197 Problem Supervision of other normal Z34.80 Ac tive confirm 369249192 Problem History of hypothyroidism Z86.39 Active confirmed 448434735 ALLERGIES No Known Allergies ENCOUNTERS from 1998 to 2021-06-05 Encounter Location Date Provider Diagnosis [facility] [address] [place] [address] [place] [address] May, Brigette Malin Nausea with vomit ing, unspecified R11.2 IMMUNIZATIONS No Information SOCIAL HISTORY Tobacco Use: Social History Observation Description Date Details (start date - stop date) Former Smoker Sex Assigned At : Social History Observation Description Sex Assigned At Unknown Education: Question Answer Notes Level of Education: Not Finished College Audit Question Answer Notes Total Score: 0 Interpretation: Alcohol Education Language: Question Answer Notes Languages spoken: Malay Yarsanism: Question Answer Notes Yarsanism 99 Other Sabianist Drug and Alcohol Question Answer Notes Total [...] Notes Start Da te End Date Status Promethazine HCl 12.5 MG 1 tablet as needed Orally every 6 hrs f or 30 day(s) May, Active Levothyroxine Sodium 50 MCG 1 tablet [...] Once a day for 30 day(s) Active 27-1 MG 1 tablet Orally Once a day Active Vitamin B6 100 MG 1 tablet Orally Once a day for 30 day(s) Active Amoxicillin 875 MG 1 tablet Orally Twice a day for 7 day(s) Feb, Not-Taking PROCEDURES No Information RESULTS No Results REASON FOR VISIT No Information MEDICAL (GENERAL) HISTORY Type Description Date Medical History Cholestasis with prior Medical History scoliosis Surgical History Adenoidectomy Surgical History Cholecystectomy 2016 Surgical History wisdom tooth extraction 2013 Hospitalization History childbirth Hospitalization History Cholestasis, admitted x 1 week 2017 Goals Section No Information Health Concerns No Information MEDICAL EQUIPMENT No Information MENTAL STATUS No Information FUNCTIONAL STATUS No Information ASSESSMENTS Encounter Date Diagnosis Assessment Notes Treatment Notes Treatm ent Clinical Notes May, Nausea with vomiting, unspecified (ICD-10 - R11. 2) PLAN OF TREATMENT Medication Medication Name Sig Start Date Stop Date Promethazine HCl 12.5 MG 1 tablet as needed Orally every 6 h rs for 30 day(s) May, Next Appt Details Provider Name:Chastity Vaguhn, 2021-06-17 02:40:00 PM, [address] [facility], , [place], [address], Provider Name:Chastity Vaughn, 2021-07-03 02:40:00 PM, [address] [facility], , [place], [address], Provider Name:Chastity Holliday Roderick, 2021-07-17 02:40:00 PM, [address] [facility], , [place], [address], Insurance Providers Payer Name Payer Address Payer Phone Insured Name Patient Relati onship to Insured Coverage Start Date Coverage End Date [facility] [address] [place] [facility] [id number] PAUL RAHMAN self
--- OUTSIDE RECORDS SUMMARY | 2021-07-04 23:45 | CCD ---
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 Act mario confirmed 657228547 Problem Supervision of other normal Z34.80 Ac tive confirm 636045472 Problem History of hypothyroidism Z86.39 Active confirmed 464394933 Problem Scoliosis, unspecified scoliosis type, unspecifi ed spinal region M41.9 Active confirmed 149356966 Problem Anxiety F41.9 Active confirmed 46205627 ALLERGIES No Known Allergies ENCOUNTERS from 1998 to 2021-07-01 Encounter Location Date Provider Diagnosis [facility] [address] [place] [address] [place] [address] 16 Jun, 2021 Brigette Malin Toxic liver disea se with cholestasis K71.0 ; Liver and biliary tract disorders in , third trimester O26.613 and 35 weeks gestation of Z3A.35 IMMUNIZATIONS Vaccine Route Administration Date Status TDAP [...] Education Language: Question Answer Notes Languages spoken: Mohawk Church: Question Answer Notes Church 99 Other [employer] Drug and Alcohol Question Answer Notes Total [...] FOR REFERRAL No Information VITAL SIGNS Weight 185.4 lbs Jun, Weight-kg 84.1 kg Jun, Height 65 in Jun, BMI 30.852 kg/m2 Jun, Blood pressure systolic 118 mm Hg Jun, Blood pressure diastolic 70 mm Hg Jun, MEDICATIONS Medication SIG (Take, Route, Frequency, Duration) Notes Start Da te End Date Status Vitamin B6 100 MG 1 tablet Orally Once a day for 30 day(s) Active Promethazine HCl 12.5 MG 1 tablet as needed Orally every 6 hrs f or 30 day(s) May, Active Amoxicillin 875 MG 1 tablet Orally Twice a day for 7 day(s) Feb, Not-Taking Robitussin Chest Congestion 100 MG/5ML 10 ml as needed Orally every 4 hrs Not-Taking Unisom 25 MG 1 tablet at bedtime as needed Orally Once a day for 30 day(s) Active Ursodiol 300 MG 1 capsule Orally Twice a day for 30 day(s) Jun, Active 27-1 MG 1 tablet Orally Once a day Active Levothyroxine Sodium 50 MCG 1 tablet in the morning on an empty stomach Orally Once a day for 30 day(s) December, Not-Pantera ing Levothyroxine Sodium 25 MCG 1 tablet in the morning on an empty stomach Orally Once a day for 60 day(s) Feb, Not-Pantera ing PROCEDURES from 1998 to 2021-07-01 Procedure Date Ordered Result Body Site non-stress test 2021-06-30 N/A RESULTS No Results REASON FOR VISIT 1 WK PN/ NST MEDICAL (GENERAL) HISTORY Type Description Date Medical [...] Notes Treatment Notes Treatm ent Clinical Notes Jun, Toxic liver disease with cholestasis (ICD-10 - K 71.0) Jun, Liver and biliary tract diso rders in , third trimester (ICD-10 - O26.613) Jun, 35 weeks gestation of (ICD-10 - Z3A.35 ) PLAN OF TREATMENT Pending Tests Test Name Order Date GROUP B STREP CULTURE 2021-06-30 Next Appt Details 1 Week Reason:- COB appt with testing Provider Name:Alfred Castellanos, 10:00:00 AM, [address] [place] [address] , [place], [address], Provider Name:Chastity Vaughn, 2021-07-17 02:40:00 PM, [address] [place] [address], , [place], [address], Follow Up:1 Week- COB appt with testing Insurance Providers Payer Name Payer Address Payer Phone Insured Name Patient Relati onship to Insured Coverage Start Date Coverage End Date [facility] [employer] [address] [place] [id number] PAUL RAHMAN self
--- OUTSIDE RECORDS SUMMARY | 2021-07-04 23:45 | CCD ---
Author Author [facility] Organization [facility] Address Unknown Phone Unavailable Care Team Providers Care Aquatic Physiotherapist Name Role Phone Caitlin Hassan Unavailable PROBLEMS Type Condition ICD9-CM Code [id number] Code Onset Dates Condition S tatus W/U Status Risk SNOMED Code Notes Problem Anxiety F41.9 Active confirmed 14697723 Problem Obstruction of bile duct K83.1 Active confirmed 71737844 Problem Supervision of other normal Z34.80 Ac tive confirm 375636330 Problem History of hypothyroidism Z86.39 Active confirmed 294950257 Problem Scoliosis, unspecified scoliosis type, unspecifi ed spinal region M41.9 Active confirmed 731144575 ALLERGIES No Known Allergies ENCOUNTERS from 1998 to 2021-06-26 Encounter Location Date Provider Diagnosis [facility] [address] [place] [address] [place] [address] Jun, Caitlin Mo Liver and biliary tr act disorders in , third trimester O26.613 IMMUNIZATIONS Vaccine Route Administration Date Status TDAP [...] Education Language: Question Answer Notes Languages spoken: Mongolian Yazdanism: Question Answer Notes Yazdanism 99 Other Tenriism Drug and Alcohol Question Answer Notes Total [...] FOR REFERRAL No Information VITAL SIGNS Weight 188.4 lbs Jun, Height 65 in Jun, BMI 31.35 kg/m2 Jun, Blood pressure systolic 124 mm Hg Jun, Blood pressure diastolic 78 mm Hg Jun, MEDICATIONS Medication SIG (Take, [...] for 30 day(s) December, Not-Pantera ing PROCEDURES from 1998 to 2021-06-26 Procedure Date Ordered Result Body Site non-stress test 2021-06-23 N/A RESULTS No Results REASON FOR VISIT [...] Treatment Notes Treatm ent Clinical Notes Jun, Liver and biliary tract diso rders in , third trimester (ICD-10 - O26.613) PLAN OF TREATMENT Pending Tests Test Name Order Date BILE ACIDS FRACTIONATED 2021-06-23 LIVER PROFILE 2021-06-23 Next Appt Details 1 Week Reason:cob Provider Name:Brigette Malin, 2021-06-30 11:00:00 AM, [address] [place] [address], , [place], [address], Provider Name:Alfred Castellanos, 10:00:00 AM, [address] [place] [address], , [place], [address], Provider Name:Chastity Vaughn, 2021-07-17 02:40:00 PM, [address] [place] [address], , [place], [address], Follow Up:1 Weekcob Insurance Providers Payer Name Payer Address Payer Phone Insured Name Patient Relati onship to Insured Coverage Start Date Coverage End Date [facility] [address] [place] [id number] PAUL RAHMAN self
--- OUTSIDE RECORDS SUMMARY | 2021-07-04 23:45 | CCD ---
Author Author [facility] Organization [facility] Address Unknown Phone Unavailable Care Team Providers Care Health Physics Technician Name Role Phone AndreyRoderick Unavailable PROBLEMS Type Condition ICD9-CM Code [id number] Code Onset Dates Condition S tatus W/U Status Risk SNOMED Code Notes Problem Scoliosis, unspecified scoliosis type, unspecifi ed spinal region M41.9 Active confirmed 455127713 Problem Anxiety F41.9 Active confirmed 72659335 Problem Supervision of other normal Z34.80 Ac tive confirm 823734405 Problem History of hypothyroidism Z86.39 Active confirmed 734298760 ALLERGIES No Known Allergies ENCOUNTERS from 1998 to 2021-05-24 Encounter Location Date Provider Diagnosis [facility] [address] [place] [address] [place] [address] May, Roderick Balderas Encounter for superv ision of other normal in third trimester Z34.83 and 29 weeks gestation of Z3A.29 IMMUNIZATIONS No Information SOCIAL HISTORY Tobacco Use: Social History Observation Description Date Details (start date - stop date) Former Smoker Sex Assigned At : Social History Observation Description Sex Assigned At Unknown Education: Question Answer Notes Level of Education: Not Finished College Audit Question Answer Notes Total Score: 0 Interpretation: Alcohol Education Language: Question Answer Notes Languages spoken: Angolan Sabianism: Question Answer Notes Sabianism 99 Other Sabianist Sexual Hx: Question Answer Notes Had sex [...] FOR REFERRAL No Information VITAL SIGNS Weight 189 lbs May, Height 65 in May, BMI 31.451 kg/m2 May, Blood pressure systolic 122 mm Hg May, Blood pressure diastolic 72 mm Hg May, MEDICATIONS Medication SIG (Take, Route, Frequency, Duration) Notes Start Da te End Date Status Unisom 25 MG 1 tablet at bedtime as needed Orally Once a day for 30 day(s) Active 27-1 MG 1 tablet Orally Once a day Active Ondansetron 4 MG 1 tablet on the tongue and a llow to dissolve Orally every 6 hours as needed for nausea for 30 day(s) Feb, Active Levothyroxine Sodium 25 MCG 1 tablet in the morning on an empty stomach Orally Once a day for 60 day(s) Feb, Not-Pantera ing Levothyroxine Sodium 50 MCG 1 tablet in the morning on an empty stomach Orally Once a day for 30 day(s) December, Not-Pantera ing Robitussin Chest Congestion 100 MG/5ML 10 ml as needed Orally every 4 hrs Not-Taking Amoxicillin 875 MG 1 tablet Orally Twice a day for 7 day(s) Feb, Not-Taking Vitamin B6 100 MG 1 tablet Orally Once a day for 30 day(s) Active PROCEDURES No Information RESULTS No Results REASON FOR VISIT 4 WK PN MEDICAL (GENERAL) HISTORY Type Description Date Medical History Cholestasis with prior Medical History scoliosis Surgical History Adenoidectomy Surgical History Cholecystectomy 2017 Surgical History wisdom tooth extraction 2014 Hospitalization History childbirth Hospitalization History Cholestasis, admitted x 1 week 2017 Goals Section No Information Health Concerns No Information MEDICAL EQUIPMENT No Information MENTAL STATUS No Information FUNCTIONAL STATUS No Information ASSESSMENTS Encounter Date Diagnosis Assessment Notes Treatment Notes Treatm ent Clinical Notes May, Encounter for supervision of other normal in third trimester (ICD-10 - Z34.83) May, 29 weeks gestation of (ICD-10 - Z3A.29 ) PLAN OF TREATMENT Next Appt Details Provider Name:Caitlin Hassan, 2021-06-03 0 2:00:00 PM, [address] [facility], , [place], [address], Provider Name:Chastity Vaughn, 2021-06-17 02:40:00 PM, [address] [facility], , [place], [address], Insurance Providers Payer Name Payer Address Payer Phone Insured Name Patient Relati onship to Insured Coverage Start Date Coverage End Date [facility] [address] [place] [address] PAUL RAHMAN self
--- OUTSIDE RECORDS SUMMARY | 2021-07-04 23:45 | CCD ---
Author Author [facility] Organization [facility] Address Unknown Phone Unavailable Care Team Providers Care Compensation Director Name Role Phone Brigette Malin Unavailable PROBLEMS Type Condition ICD9-CM Code [id number] Code Onset Dates Condition S tatus W/U Status Risk SNOMED Code Notes Problem Scoliosis, unspecified scoliosis type, unspecifi ed spinal region M41.9 Active confirmed 536278187 Problem Anxiety F41.9 Active confirmed 73734386 Problem Supervision of other normal Z34.80 Ac tive confirm 256855316 Problem History of hypothyroidism Z86.39 Active confirmed 636906119 ALLERGIES No Known Allergies ENCOUNTERS from 1998 to 2021-06-05 Encounter Location Date Provider Diagnosis [facility] [address] [place] [address] [place] [address] May, Brigette Malin Nausea with vomit ing, [...] Education Language: Question Answer Notes Languages spoken: Danish Moravian: Question Answer Notes Moravian 99 Other Yazdanism Drug and Alcohol Question Answer Notes Total [...] day(s) May, Next Appt Details Provider Name:Chastity Vaughn, 2021-06-17 02:40:00 PM, [address] [facility], , [place], [address], Provider Name:Chastity Vaughn, 2021-07-03 02:40:00 PM, [address] [facility], , [place], [address], Provider Name:Chastity Holliday Roderick, 2021-07-17 02:40:00 PM, [address] [facility], , [place], [address], Insurance Providers Payer Name Payer Address Payer Phone Insured Name Patient Relati onship to Insured Coverage Start Date Coverage End Date [facility] [employer] [address] [facility] [id number] PAUL ARHMAN self
--- OUTSIDE RECORDS SUMMARY | 2021-07-04 23:46 | CCD ---
Author Author [facility] Address Unknown Phone Unavailable Support Name Relationship Address Phone UE Next Of Kin Unknown Unavailable ROMI DUKES Next Of Kin [id number] [id number] [place], [place] [id number] Re-disclosure Warning The records that you are about to access may contain information from federally-assisted alcohol or drug abuse programs. If such information is present, then the following federally mandated warning applies: This information has been disclosed to you from records protected by federal confidentiality rules (42 CFR part 2). The federal rules prohibit you from making any further disclosure of this information unless further disclosure is expressly permitted by the written consent of the person to whom it pertains or as otherwise permitted by 42 CFR part 2. A general authorization for the release of medical or other information is NOT sufficient for this purpose. The Federal rules restrict any use of the information to criminally investigate or prosecute any alcohol or drug abuse patient.The records that you are about to access may contain highly sensitive health information, the redisclosure of which is protected by Article 27-F of the [facility] Public Health law. If you continue you may have access to information: Regarding HIV / AIDS; Provided by facilities licensed or operated by the [facility] Office of Mental Health; or Provided by the [facility] Office for People With Developmental Disabilities. If such information is present, then the following [facility] mandated warning applies: This information has been disclosed to you from confidential records which are protected by state law. State law prohibits you from making any further disclosure of this information without the specific written consent of the person to whom it pertains, or as otherwise permitted by law. Any unauthorized further disclosure in violation of state law may result in a fine or usp sentence or both. A general authorization for the release of medical or other information is NOT sufficient authorization for further disc losure. Encounters Encounter Providers Location Date Indications Data Source(s ) ([facility]) [facility] [address] [place] [address] 06/30/2021 12:00:00 AM EST eCW1 ([facility]) ([facility]) [facility] [address] [place] [address] 06/23/2021 12:00:00 AM EST eCW1 ([facility]) Unknown [address] [facility] [address] 06/05/2021 12:00:00 AM EDT eCW1 ([facility]) Unknown [address] [facility] [address] 06/05/2021 12:00:00 AM EDT eCW1 ([facility]) (WC ESTOB) [facility] [address] [place] [address] 06/03/2021 12:00:00 AM EDT eCW1 ([facility]) Unknown [address] [facility] [address] 06/03/2021 12:00:00 AM EDT eCW1 ([facility]) ([facility] ESTOB) [facility] [address] [place] [address] 05/20/2021 12:00:00 AM EDT eCW1 ([facility]) (WC EST[facility]) [facility] [address] [place] [address] 04/22/2021 12:00:00 AM EDT eCW1 ([facility]) (WC EST[facility]) [facility] [address] [place] [address] 2021 12:00:00 AM EDT eCW1 ([facility]) Outpatient [address] [facility] [address] 03/02/2021 12:00:00 AM EDT eCW1 ([facility]) Unknown [address] [facility] [address] 03/02/2021 12:00:00 AM EDT eCW1 ([facility]) Unknown [address] [facility] [address] 02/26/2021 12:00:00 AM EDT eCW1 ([facility]) Unknown [address] [facility] [address] 02/20/2021 12:00:00 AM EDT eCW1 ([facility]) (WC ESTOB) [facility] [address] [place] [address] 02/19/2021 12:00:00 AM EDT eCW1 ([facility]) Outpatient [address] [facility] [address] 02/02/2021 12:00:00 AM EDT eCW1 ([facility]) Unknown [address] [facility] [address] 02/02/2021 12:00:00 AM EDT eCW1 ([facility]) Unknown [address] [facility] [address] 01/29/2021 12:00:00 AM EDT eCW1 ([facility]) Unknown [address] [facility] [address] 01/26/2021 12:00:00 AM EDT eCW1 ([facility]) ([facility] EST[facility]) [facility] [address] [place] [address] 01/22/2021 12:00:00 AM EDT eCW1 ([facility]) ([facility] EST[facility]) [facility] [address] [place] [address] 12/25/2020 12:00:00 AM EDT eCW1 ([facility]) Immunizations Vaccine Date Status Description Data Source(s) Tdap 06/17/2021 04:52:00 PM EDT completed e CW1 ([facility]) Tdap 06/17/2021 04:52:00 PM EDT completed e CW1 ([facility]) Tdap 06/17/2021 04:52:00 PM EDT completed e CW1 ([facility]) COVID-19 VACCINE Moderna 04/25/2021 12:00:00 AM EDT completed [facility] Vaccine Series Complete: YESThis Data wa s Submitted to [facility] Via [employer]. COVID-19 VACCINE Moderna 03/28/2021 12:00:00 AM EDT completed [facility] Vaccine Series Complete: NOThis Data was Submitted to [facility] Via [employer]. Medications Medication Brand Name Start Date Product Form Dose Route Admi nistrative Instructions Pharmacy Instructions Status Indications Reaction Description Data Source(s) Ursodiol 300 MG Oral Capsule Ursodiol 300 MG 06/16/2021 12:00:00 AM EDT 1.0 {capsule} active Ursodiol 300 MG eCW1 ( [facility]) Ursodiol 300 MG Oral Capsule Ursodiol 300 MG 06/16/2021 12:00:00 AM EDT 1.0 {capsule} active Ursodiol 300 MG eCW1 ( [facility]) Ursodiol 300 MG Oral Capsule Ursodiol 300 MG 06/16/2021 12:00:00 AM EDT 1.0 {capsule} active Ursodiol 300 MG eCW1 ( [facility]) Promethazine Hydrochloride 12.5 MG Oral Tablet Prometh azine HCl 12.5 MG Promethazine HCl 12.5 MG 06/05/2021 12:00:00 AM EDT 1.0 {tablet_as_ needed} active Promethazine HCl 12.5 MG eCW1 ([facility]) Promethazine Hydrochloride 12.5 MG Oral Tablet Prometh azine HCl 12.5 MG Promethazine HCl 12.5 MG 06/05/2021 12:00:00 AM EDT 1.0 {tablet_as_ needed} active Promethazine HCl 12.5 MG eCW1 ([facility]) Promethazine Hydrochloride 12.5 MG Oral Tablet Prometh azine HCl 12.5 MG Promethazine HCl 12.5 MG 06/05/2021 12:00:00 AM EDT 1.0 {tablet_as_ needed} active Promethazine HCl 12.5 MG eCW1 ([facility]) Promethazine Hydrochloride 12.5 MG Oral Tablet Prometh azine HCl 12.5 MG Promethazine HCl 12.5 MG 06/05/2021 12:00:00 AM EDT 1.0 {tablet_as_ needed} active Promethazine HCl 12.5 MG eCW1 ([facility]) Promethazine Hydrochloride 12.5 MG Oral Tablet Prometh azine HCl 12.5 MG Promethazine HCl 12.5 MG 06/05/2021 12:00:00 AM EDT 1.0 {tablet_as_ needed} active Promethazine HCl 12.5 MG eCW1 ([facility]) NITROFURANTOIN, MACROCRYSTALS 25 MG / Ni trofurantoin, Monohydrate 75 MG Oral Capsule [Macrobid] Macrobid 100 MG Macrobid 100 MG 04/22/2021 12:00:00 AM EDT active Macrobid 100 MG eCW1 ([facility]) NITROFURANTOIN, MACROCRYSTALS 25 MG / Ni trofurantoin, Monohydrate 75 MG Oral Capsule [Macrobid] Macrobid 100 MG Macrobid 100 MG 04/22/2021 12:00:00 AM EDT active Macrobid 100 MG eCW1 ([facility]) Amoxicillin 875 MG Oral Tablet Amoxicillin 875 MG 03/02/2021 12:00: 00 AM EDT 1.0 {tablet} suspended Amoxicillin 875 M G eCW1 ([facility]) Amoxicillin 875 MG Oral Tablet Amoxicillin 875 MG 03/02/2021 12:00: 00 AM EDT 1.0 {tablet} suspended Amoxicillin 875 M G eCW1 ([facility]) Amoxicillin 875 MG Oral Tablet Amoxicillin 875 MG 03/02/2021 12:00: 00 AM EDT 1.0 {tablet} suspended Amoxicillin 875 M G eCW1 ([facility]) Amoxicillin 875 MG Oral Tablet Amoxicillin 875 MG 03/02/2021 12:00: 00 AM EDT 1.0 {tablet} suspended Amoxicillin 875 M G eCW1 ([facility]) Amoxicillin 875 MG Oral Tablet Amoxicillin 875 MG 03/02/2021 12:00: 00 AM EDT 1.0 {tablet} active Amoxicillin 875 MG eCW1 ([facility]) Amoxicillin 875 MG Oral Tablet Amoxicillin 875 MG 03/02/2021 12:00: 00 AM EDT 1.0 {tablet} suspended Amoxicillin 875 M G eCW1 ([facility]) Amoxicillin 875 MG Oral Tablet Amoxicillin 875 MG 03/02/2021 12:00: 00 AM EDT 1.0 {tablet} active Amoxicillin 875 MG eCW1 ([facility]) Amoxicillin 875 MG Oral Tablet Amoxicillin 875 MG 03/02/2021 12:00: 00 AM EDT 1.0 {tablet} suspended Amoxicillin 875 M G eCW1 ([facility]) Amoxicillin 875 MG Oral Tablet Amoxicillin 875 MG 03/02/2021 12:00: 00 AM EDT 1.0 {tablet} suspended Amoxicillin 875 M G eCW1 ([facility]) Amoxicillin 875 MG Oral Tablet Amoxicillin 875 MG 03/02/2021 12:00: 00 AM EDT 1.0 {tablet} suspended Amoxicillin 875 M G eCW1 ([facility]) Amoxicillin 875 MG Oral Tablet Amoxicillin 875 MG 03/02/2021 12:00: 00 AM EDT 1.0 {tablet} suspended Amoxicillin 875 M G eCW1 ([facility]) Levothyroxine Sodium 0.025 MG Oral Tablet Levothyroxin e Sodium 25 MCG Levothyroxine Sodium 25 MCG 02/19/2021 12:00:00 AM EDT suspended Levothyroxine Sodium 25 MCG eCW1 ([facility]) Ondansetron 4 MG Disintegrating Oral Tablet Ondansetron 4 MG 02/19/2021 12:00:00 AM EDT 1.0 {tablet_on_the_tongue_and_allow_to_dissolve} active Ondansetron 4 MG eCW1 ([facility]) Levothyroxine Sodium 0.025 MG Oral Tablet Levothyroxin e Sodium 25 MCG Levothyroxine Sodium 25 MCG 02/19/2021 12:00:00 AM EDT active Levothyroxine Sodium 25 MCG eCW1 ([facility]) Ondansetron 4 MG Disintegrating Oral Tablet Ondansetron 4 MG 02/19/2021 12:00:00 AM EDT 1.0 {tablet_on_the_tongue_and_allow_to_dissolve} active Ondansetron 4 MG eCW1 ([facility]) Levothyroxine Sodium 0.025 MG Oral Tablet Levothyroxin e Sodium 25 MCG Levothyroxine Sodium 25 MCG 02/19/2021 12:00:00 AM EDT active Levothyroxine Sodium 25 MCG eCW1 ([facility]) Levothyroxine Sodium 0.025 MG Oral Tablet Levothyroxin e Sodium 25 MCG Levothyroxine Sodium 25 MCG 02/19/2021 12:00:00 AM EDT active Levothyroxine Sodium 25 MCG eCW1 ([facility]) Levothyroxine Sodium 0.025 MG Oral Tablet Levothyroxin e Sodium 25 MCG Levothyroxine Sodium 25 MCG 02/19/2021 12:00:00 AM EDT suspended Levothyroxine Sodium 25 MCG eCW1 ([facility]) Ondansetron 4 MG Disintegrating Oral Tablet Ondansetron 4 MG 02/19/2021 12:00:00 AM EDT 1.0 {tablet_on_the_tongue_and_allow_to_dissolve} active Ondansetron 4 MG eCW1 ([facility]) Ondansetron 4 MG Disintegrating Oral Tablet Ondansetron 4 MG 02/19/2021 12:00:00 AM EDT 1.0 {tablet_on_the_tongue_and_allow_to_dissolve} active Ondansetron 4 MG eCW1 ([facility]) Ondansetron 4 MG Disintegrating Oral Tablet Ondansetron 4 MG 02/19/2021 12:00:00 AM EDT 1.0 {tablet_on_the_tongue_and_allow_to_dissolve} active Ondansetron 4 MG eCW1 ([facility]) Ondansetron 4 MG Disintegrating Oral Tablet Ondansetron 4 MG 02/19/2021 12:00:00 AM EDT 1.0 {tablet_on_the_tongue_and_allow_to_dissolve} active Ondansetron 4 MG eCW1 ([facility]) Ondansetron 4 MG Disintegrating Oral Tablet Ondansetron 4 MG 02/19/2021 12:00:00 AM EDT 1.0 {tablet_on_the_tongue_and_allow_to_dissolve} active Ondansetron 4 MG eCW1 ([facility]) Levothyroxine Sodium 0.025 MG Oral Tablet Levothyroxin e Sodium 25 MCG Levothyroxine Sodium 25 MCG 02/19/2021 12:00:00 AM EDT suspended Levothyroxine Sodium 25 MCG eCW1 ([facility]) Levothyroxine Sodium 0.025 MG Oral Tablet Levothyroxin e Sodium 25 MCG Levothyroxine Sodium 25 MCG 02/19/2021 12:00:00 AM EDT active Levothyroxine Sodium 25 MCG eCW1 ([facility]) Ondansetron 4 MG Disintegrating Oral Tablet Ondansetron 4 MG 02/19/2021 12:00:00 AM EDT 1.0 {tablet_on_the_tongue_and_allow_to_dissolve} active Ondansetron 4 MG eCW1 ([facility]) Levothyroxine Sodium 0.025 MG Oral Tablet Levothyroxin e Sodium 25 MCG Levothyroxine Sodium 25 MCG 02/19/2021 12:00:00 AM EDT suspended Levothyroxine Sodium 25 MCG eCW1 ([facility]) Ondansetron 4 MG Disintegrating Oral Tablet Ondansetron 4 MG 02/19/2021 12:00:00 AM EDT 1.0 {tablet_on_the_tongue_and_allow_to_dissolve} active Ondansetron 4 MG eCW1 ([facility]) Levothyroxine Sodium 0.025 MG Oral Tablet Levothyroxin e Sodium 25 MCG Levothyroxine Sodium 25 MCG 02/19/2021 12:00:00 AM EDT suspended Levothyroxine Sodium 25 MCG eCW1 ([facility]) Levothyroxine Sodium 0.025 MG Oral Tablet Levothyroxin e Sodium 25 MCG Levothyroxine Sodium 25 MCG 02/19/2021 12:00:00 AM EDT active Levothyroxine Sodium 25 MCG eCW1 ([facility]) Levothyroxine Sodium 0.025 MG Oral Tablet Levothyroxin e Sodium 25 MCG Levothyroxine Sodium 25 MCG 02/19/2021 12:00:00 AM EDT suspended Levothyroxine Sodium 25 MCG eCW1 ([facility]) Levothyroxine Sodium 0.025 MG Oral Tablet Levothyroxin e Sodium 25 MCG Levothyroxine Sodium 25 MCG 02/19/2021 12:00:00 AM EDT active Levothyroxine Sodium 25 MCG eCW1 ([facility]) Ondansetron 4 MG Disintegrating Oral Tablet Ondansetron 4 MG 02/19/2021 12:00:00 AM EDT 1.0 {tablet_on_the_tongue_and_allow_to_dissolve} active Ondansetron 4 MG eCW1 ([facility]) Ondansetron 4 MG Disintegrating Oral Tablet Ondansetron 4 MG 02/19/2021 12:00:00 AM EDT 1.0 {tablet_on_the_tongue_and_allow_to_dissolve} active Ondansetron 4 MG eCW1 ([facility]) Levothyroxine Sodium 0.025 MG Oral Tablet Levothyroxin e Sodium 25 MCG Levothyroxine Sodium 25 MCG 02/19/2021 12:00:00 AM EDT suspended Levothyroxine Sodium 25 MCG eCW1 ([facility]) Levothyroxine Sodium 0.025 MG Oral Tablet Levothyroxin e Sodium 25 MCG Levothyroxine Sodium 25 MCG 02/19/2021 12:00:00 AM EDT active Levothyroxine Sodium 25 MCG eCW1 ([facility]) Levothyroxine Sodium 0.025 MG Oral Tablet Levothyroxin e Sodium 25 MCG Levothyroxine Sodium 25 MCG 02/19/2021 12:00:00 AM EDT active Levothyroxine Sodium 25 MCG eCW1 ([facility]) Levothyroxine Sodium 0.025 MG Oral Tablet Levothyroxin e Sodium 25 MCG Levothyroxine Sodium 25 MCG 02/19/2021 12:00:00 AM EDT active Levothyroxine Sodium 25 MCG eCW1 ([facility]) Levothyroxine Sodium 0.05 MG Oral Tablet Levothyroxine Sodium 50 MCG Levothyroxine Sodium 50 MCG 12/25/2020 12:00:00 AM EDT suspended Levothyroxine Sodium 50 MCG eCW1 ([facility]) Levothyroxine Sodium 0.05 MG Oral Tablet Levothyroxine Sodium 50 MCG Levothyroxine Sodium 50 MCG 12/25/2020 12:00:00 AM EDT active Levothyroxine Sodium 50 MCG eCW1 ([facility]) Levothyroxine Sodium 0.05 MG Oral Tablet Levothyroxine Sodium 50 MCG Levothyroxine Sodium 50 MCG 12/25/2020 12:00:00 AM EDT suspended Levothyroxine Sodium 50 MCG eCW1 ([facility]) Levothyroxine Sodium 0.05 MG Oral Tablet Levothyroxine Sodium 50 MCG Levothyroxine Sodium 50 MCG 12/25/2020 12:00:00 AM EDT suspended Levothyroxine Sodium 50 MCG eCW1 ([facility]) Levothyroxine Sodium 0.05 MG Oral Tablet Levothyroxine Sodium 50 MCG Levothyroxine Sodium 50 MCG 12/25/2020 12:00:00 AM EDT suspended Levothyroxine Sodium 50 MCG eCW1 ([facility]) Levothyroxine Sodium 0.05 MG Oral Tablet Levothyroxine Sodium 50 MCG Levothyroxine Sodium 50 MCG 12/25/2020 12:00:00 AM EDT suspended Levothyroxine Sodium 50 MCG eCW1 ([facility]) Levothyroxine Sodium 0.05 MG Oral Tablet Levothyroxine Sodium 50 MCG Levothyroxine Sodium 50 MCG 12/25/2020 12:00:00 AM EDT suspended Levothyroxine Sodium 50 MCG eCW1 ([facility]) Levothyroxine Sodium 0.05 MG Oral Tablet Levothyroxine Sodium 50 MCG Levothyroxine Sodium 50 MCG 12/25/2020 12:00:00 AM EDT suspended Levothyroxine Sodium 50 MCG eCW1 ([facility]) Levothyroxine Sodium 0.05 MG Oral Tablet Levothyroxine Sodium 50 MCG Levothyroxine Sodium 50 MCG 12/25/2020 12:00:00 AM EDT suspended Levothyroxine Sodium 50 MCG eCW1 ([facility]) Levothyroxine Sodium 0.05 MG Oral Tablet Levothyroxine Sodium 50 MCG Levothyroxine Sodium 50 MCG 12/25/2020 12:00:00 AM EDT suspended Levothyroxine Sodium 50 MCG eCW1 ([facility]) Levothyroxine Sodium 0.05 MG Oral Tablet Levothyroxine Sodium 50 MCG Levothyroxine Sodium 50 MCG 12/25/2020 12:00:00 AM EDT suspended Levothyroxine Sodium 50 MCG eCW1 ([facility]) Levothyroxine Sodium 0.05 MG Oral Tablet Levothyroxine Sodium 50 MCG Levothyroxine Sodium 50 MCG 12/25/2020 12:00:00 AM EDT suspended Levothyroxine Sodium 50 MCG eCW1 ([facility]) Levothyroxine Sodium 0.05 MG Oral Tablet Levothyroxine Sodium 50 MCG Levothyroxine Sodium 50 MCG 12/25/2020 12:00:00 AM EDT suspended Levothyroxine Sodium 50 MCG eCW1 ([facility]) Levothyroxine Sodium 0.05 MG Oral Tablet Levothyroxine Sodium 50 MCG Levothyroxine Sodium 50 MCG 12/25/2020 12:00:00 AM EDT suspended Levothyroxine Sodium 50 MCG eCW1 ([facility]) Levothyroxine Sodium 0.05 MG Oral Tablet Levothyroxine Sodium 50 MCG Levothyroxine Sodium 50 MCG 12/25/2020 12:00:00 AM EDT suspended Levothyroxine Sodium 50 MCG eCW1 ([facility]) Levothyroxine Sodium 0.05 MG Oral Tablet Levothyroxine Sodium 50 MCG Levothyroxine Sodium 50 MCG 12/25/2020 12:00:00 AM EDT suspended Levothyroxine Sodium 50 MCG eCW1 ([facility]) Levothyroxine Sodium 0.05 MG Oral Tablet Levothyroxine Sodium 50 MCG Levothyroxine Sodium 50 MCG 12/25/2020 12:00:00 AM EDT suspended Levothyroxine Sodium 50 MCG eCW1 ([facility]) Levothyroxine Sodium 0.05 MG Oral Tablet Levothyroxine Sodium 50 MCG Levothyroxine Sodium 50 MCG 12/25/2020 12:00:00 AM EDT active Levothyroxine Sodium 50 MCG eCW1 ([facility]) Levothyroxine Sodium 0.05 MG Oral Tablet Levothyroxine Sodium 50 MCG Levothyroxine Sodium 50 MCG 12/25/2020 12:00:00 AM EDT suspended Levothyroxine Sodium 50 MCG eCW1 ([facility]) Levothyroxine Sodium 0.05 MG Oral Tablet Levothyroxine Sodium 50 MCG Levothyroxine Sodium 50 MCG 12/25/2020 12:00:00 AM EDT active Levothyroxine Sodium 50 MCG eCW1 ([facility]) Insurance Providers Payer name Policy type / Coverage type Policy ID Covered constitution party ID Covered constitution party's relationship to jarrell Policy Jarrell Plan Information [facility] [id number] SP [id number] [facility] [id number] [facility] [id number] [facility] [id number] SP [id number] Problems, Conditions, and Diagnoses Code Display Name Description Problem Type Effective Dates Data Source(s) 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 Problem 06/30/2021 12:00:00 AM EST eCW1 ([facility]) K83.1 [id number] Obstruction of bile duct Problem 06/16/2021 12:00:00 AM EDT eCW1 ([facility]) M41.9 [id number] Scoliosis, unspecifi ed scoliosis type, unspecified spinal region Problem 02/20/2021 12:00:00 AM EDT eCW1 ([facility]) F41.9 Anxiety Anxiety Problem 02/19/2021 12:00:00 AM ED T eCW1 ([facility]) Z86.39 [id number] History of hypothyroidism Problem 02/02/2021 12:00:00 AM EDT eCW1 ([facility]) Z34.80 care Supervision of other normal P roblem 12/24/2020 12:00:00 AM EDT eCW1 ([facility]) Surgeries/Procedures Procedure Description Date Indications Data Source(s) NONSTRESS TEST 06/30/2021 12:00:00 AM EST eCW1 ([facility]) NONSTRESS TEST 06/23/2021 12:00:00 AM EST eCW1 ([facility]) URINE-NO MICRO 04/22/2021 12:00:00 AM EDT eCW1 ([facility]) Results ID Date Data Source BILE ACIDS FRACTIONATED 06/03/2021 12:00:00 AM EDT eCW1 ([facility]) Name Value Range Interpretation Code Description Data Melly rce(s) Supporting Document(s) 18.8 0.0-10.0 BILE ACIDS FRACTIONATED eCW1 ( [facility]) ID Date Data Source LIVER PROFILE 06/03/2021 12:00:00 AM EDT eCW1 ([facility]) Name Value Range Interpretation Code Description Data Melly rce(s) Supporting Document(s) 31 12-78 ALT/SGPT eCW1 ([facility]) 19 7-37 AST/SGOT eCW1 ([facility]) 241 45-117 ALKALINE PHOSPHATASE eCW1 ([facility]) 0.3 0.2-1.0 BILIRUBIN,TOTAL eCW1 (On license of [facility]) 6.5 6.4-8.2 TOTAL PROTEIN eCW1 ([facility]) 0.1 0.0-0.2 BILIRUBIN,DIRECT eCW1 ([facility]) 0.7 1.2-2.2 ALBUMIN/GLOBULIN RATIO eCW1 ([facility]) 2.7 3.2-5.2 ALBUMIN eCW1 ([facility]) ID Date Data Source Glucose Challenge Test 1 Hour 04/22/2021 12:00:00 AM EDT eCW 1 ([facility]) Name Value Range Interpretation Code Description Data Melly rce(s) Supporting Document(s) 91 LESS THAN 140 GLUCOSE CHALLENGE TEST 1 HOUR eCW1 ([facility]) ID Date Data Source FREE T4 & TSH PANEL 04/22/2021 12:00:00 AM EDT eCW1 ([facility]) Name Value Range Interpretation Code Description Data Melly rce(s) Supporting Document(s) 2.700 0.358-3.740 THYROID STIMULATING HORM ONE eCW1 ([facility]) 1.03 0.76-1.46 FREE T4 eCW1 ([facility]) ID Date Data Source CBC - Complete Blood Count 04/22/2021 12:00:00 AM EDT eCW1 ( [facility]) Name Value Range Interpretation Code Description Data Melly rce(s) Supporting Document(s) 10.2 4.0-10.0 WHITE BLOOD COUNT eCW1 ([facility]) 4.36 4.00-5.40 RED BLOOD COUNT eCW1 (On license of [facility]) 12.0 12.0-15.5 HEMOGLOBIN eCW1 ([facility] hospital) 27.5 27.0-33.0 MEAN CORPUSCULAR HEMOGLOB IN eCW1 ([facility]) 37.2 36.0-47.0 HEMATOCRIT eCW1 (Critical access hospital) 85.3 80.0-96.0 MEAN CORPUSCULAR VOLUME e CW1 ([facility]) 301 150-450 PLATELET COUNT, AUTOMATED eCW1 ([facility]) 13.4 11.5-14.5 RED CELL DISTRIBUTION WID TH eCW1 ([facility]) 32.3 32.0-36.5 MEAN CORPUSCULAR HGB CONC eCW1 ([facility]) ID Date Data Source Type and Screen (D Rh Antibody Screen) 04/22/2021 12:00:00 A M EDT eCW1 ([facility]) Name Value Range Interpretation Code Description Data Melly rce(s) Supporting Document(s) A POSITIVE BLOOD TYPE eCW1 ([facility]) NEGATIVE AB SCREEN (INDIRECT COOMB S)VIS eCW1 ([facility]) ID Date Data Source [id number] 03/02/2021 02:00:00 PM EDT [facility] Name Value Range Interpretation Code Description Data Melly rce(s) Supporting Document(s) SARS-CoV-2 (COVID-19) RNA [Presence] in Respiratory specimen by BENJAMIN with probe detection Not Detected [facility] This lab was ordered by [facility] and reported by [email or web address]. ID Date Data Source Coronavirus 2019 Nasopharygeal (Send Out) COVID 03/02/2021 1 2:00:00 AM EDT eCW1 ([facility]) Name Value Range Interpretation Code Description Data Melly rce(s) Supporting Document(s) Coronavirus 2019 Nasophar ygeal (Send Out) COVID eCW1 ([facility]) ID Date Data Source URINE CULTURE 01/22/2021 12:00:00 AM EDT eCW1 ([facility]) Name Value Range Interpretation Code Description Data Melly rce(s) Supporting Document(s) URINE CULTURE eCW1 ([facility]) ID Date Data Source Pre Eclampsia Profile 12/25/2020 12:00:00 AM EDT eCW1 ([facility]) Name Value Range Interpretation Code Description Data Melly rce(s) Supporting Document(s) 0.63 0.55-1.30 CREATININE FOR GFR eCW1 ([facility]) > 60.0 >60 GLOMERULAR FILTRATION RATE eCW 1 ([facility]) 128 84-246 LDH LACTATE DEHYDROGENASE eCW1 ([facility]) 3.0 2.6-6.0 URIC ACID eCW1 ([facility]) ID Date Data Source HBSAG 12/25/2020 12:00:00 AM EDT eCW1 ([facility]) Name Value Range Interpretation Code Description Data Melly rce(s) Supporting Document(s) NEGATIVE NEGATIVE HBsAg eCW1 ([facility]) ID Date Data Source RUBELLA IMMUNE STATUS IgG 12/25/2020 12:00:00 AM EDT eCW1 ([facility]) Name Value Range Interpretation Code Description Data Melly rce(s) Supporting Document(s) IMMUNE IMMUNE RUBELLA IgG QUALITATIVE eCW1 ( [facility]) ID Date Data Source SYPHILIS ANTIBODY (RPR SCREEN) 12/25/2020 12:00:00 AM EDT eC W1 ([facility]) Name Value Range Interpretation Code Description Data Melly rce(s) Supporting Document(s) NONREACTIVE NONREACTIVE SYPHILIS eCW1 ([facility]) ID Date Data Source [id number] 12/25/2020 12:00:00 AM EDT eCW1 ([facility]) Name Value Range Interpretation Code Description Data Melly rce(s) Supporting Document(s) HIV 1&2 ANTIBODY SCREEN eCW1 ( [facility]) ID Date Data Source HEPATITIS C ANTIBODY INDEX 12/25/2020 12:00:00 AM EDT eCW1 ( [facility]) Name Value Range Interpretation Code Description Data Melly rce(s) Supporting Document(s) < 0.0 <0.8 HEPATITIS C VIRUS VELMA IND EX eCW1 ([facility]) ID Date Data Source Type and Screen Prenatal1 12/25/2020 12:00:00 AM EDT eCW1 ([facility]) Name Value Range Interpretation Code Description Data Melly rce(s) Supporting Document(s) NEGATIVE AB SCREEN PNP1 GEL (VIS) eCW1 ([facility]) Procedure Social History Code Duration Value Status Description Data Source(s ) Smoking 06/30/2021 12:00:00 AM EST Former Smoker completed Former Smoker eCW1 ([facility]) Smoking 06/22/2021 12:00:00 AM EST Former Smoker completed Former Smoker eCW1 ([facility]) Smoking 06/22/2021 12:00:00 AM EST Former Smoker completed Former Smoker eCW1 ([facility]) Smoking 06/03/2021 12:00:00 AM EDT Former Smoker completed Former Smoker eCW1 ([facility]) Smoking 06/03/2021 12:00:00 AM EDT Former Smoker completed Former Smoker eCW1 ([facility]) Smoking 06/03/2021 12:00:00 AM EDT Former Smoker completed Former Smoker eCW1 ([facility]) Smoking 05/20/2021 12:00:00 AM EDT Former Smoker completed Former Smoker eCW1 ([facility]) Smoking 04/22/2021 12:00:00 AM EDT Former Smoker completed Former Smoker eCW1 ([facility]) Smoking 04/22/2021 12:00:00 AM EDT Former Smoker completed Former Smoker eCW1 ([facility]) Smoking 2021 12:00:00 AM EDT Former Smoker completed Former Smoker eCW1 ([facility]) Smoking 03/02/2021 12:00:00 AM EDT Former Smoker completed Former Smoker eCW1 ([facility]) Smoking 02/19/2021 12:00:00 AM EDT Former Smoker completed Former Smoker eCW1 ([facility]) Smoking 02/19/2021 12:00:00 AM EDT Former Smoker completed Former Smoker eCW1 ([facility]) Smoking 02/19/2021 12:00:00 AM EDT Former Smoker completed Former Smoker eCW1 ([facility]) Smoking 02/19/2021 12:00:00 AM EDT Former Smoker completed Former Smoker eCW1 ([facility]) Smoking 02/19/2021 12:00:00 AM EDT Former Smoker completed Former Smoker eCW1 ([facility]) Smoking 02/02/2021 12:00:00 AM EDT Former Smoker completed Former Smoker eCW1 ([facility]) Smoking 01/20/2021 12:00:00 AM EDT Current Smoker completed Curre nt Smoker eCW1 ([facility]) Smoking 01/20/2021 12:00:00 AM EDT Current Smoker completed Curre nt Smoker eCW1 ([facility]) Smoking 12/25/2020 12:00:00 AM EDT Current Smoker completed Curre nt Smoker eCW1 ([facility]) Vital Signs ID Date Data Source UNK Name Value Range Interpretation Code Description Data Source(s) Body weight 185.4 [lb_av] 185.4 [lb_av] eCW1 ([facility]) Body weight 84.1 kg 84.1 kg eCW1 ([facility]) Body height 65 [in_i] 65 [in_i] eCW1 ([facility]) Body mass index (BMI) [Ratio] 30.852 kg/m2 30.8 52 kg/m2 eCW1 ([facility]) Systolic blood pressure 118 mm[Hg] 118 mm[Hg] e CW1 ([facility]) Diastolic blood pressure 70 mm[Hg] 70 mm[Hg] eCW1 ([facility]) Systolic blood pressure 124 mm[Hg] 124 mm[Hg] e CW1 ([facility]) Diastolic blood pressure 78 mm[Hg] 78 mm[Hg] eCW1 ([facility]) Body weight 188.4 [lb_av] 188.4 [lb_av] eCW1 ([facility]) Body height 65 [in_i] 65 [in_i] eCW1 ([facility]) Body mass index (BMI) [Ratio] 31.35 kg/m2 31.35 kg/m2 eCW1 ([facility]) Systolic blood pressure 120 mm[Hg] 120 mm[Hg] e CW1 ([facility]) Body height 65 [in_i] 65 [in_i] eCW1 ([facility]) Body mass index (BMI) [Ratio] 31.152 kg/m2 31.1 52 kg/m2 eCW1 ([facility]) Body weight 187.2 [lb_av] 187.2 [lb_av] eCW1 ([facility]) Body weight 84.91 kg 84.91 kg eCW1 ([facility]) Diastolic blood pressure 70 mm[Hg] 70 mm[Hg] eCW1 ([facility]) Body weight 189 [lb_av] 189 [lb_av] eCW1 ([facility]) Body height 65 [in_i] 65 [in_i] eCW1 ([facility]) Body mass index (BMI) [Ratio] 31.451 kg/m2 31.4 51 kg/m2 eCW1 ([facility]) Systolic blood pressure 122 mm[Hg] 122 mm[Hg] e CW1 ([facility]) Diastolic blood pressure 72 mm[Hg] 72 mm[Hg] eCW1 ([facility]) Body weight 185.8 [lb_av] 185.8 [lb_av] eCW1 ([facility]) Body weight 84.28 kg 84.28 kg eCW1 ([facility]) Body height 65 [in_i] 65 [in_i] eCW1 ([facility]) Body mass index (BMI) [Ratio] 30.919 kg/m2 30.9 19 kg/m2 eCW1 ([facility]) Systolic blood pressure 118 mm[Hg] 118 mm[Hg] e CW1 ([facility]) Diastolic blood pressure 76 mm[Hg] 76 mm[Hg] eCW1 ([facility]) Body weight 186.6 [lb_av] 186.6 [lb_av] eCW1 ([facility]) Body weight 84.64 kg 84.64 kg eCW1 ([facility]) Body height 65 [in_i] 65 [in_i] eCW1 ([facility]) Body mass index (BMI) [Ratio] 31.052 kg/m2 31.0 52 kg/m2 eCW1 ([facility]) Systolic blood pressure 120 mm[Hg] 120 mm[Hg] e CW1 ([facility]) Diastolic blood pressure 80 mm[Hg] 80 mm[Hg] eCW1 ([facility]) Body weight 180 [lb_av] 180 [lb_av] eCW1 ([facility]) Body weight kg eCW1 ([facility]) Body height 65 [in_i] 65 [in_i] eCW1 ([facility]) Body mass index (BMI) [Ratio] 29.95 kg/m2 29.95 kg/m2 eCW1 ([facility]) Heart rate 114 /min 114 /min eCW1 (On [facility] of [facility]) Respiratory rate 20 /min 20 /min eCW1 ([facility]) Body temperature 97.8 [degF] 97.8 [degF] eCW1 ( [facility]) Systolic blood pressure 124 mm[Hg] 124 mm[Hg] e CW1 ([facility]) Diastolic blood pressure 82 mm[Hg] 82 mm[Hg] eCW1 ([facility]) Body weight 185.2 [lb_av] 185.2 [lb_av] eCW1 ([facility]) Body weight 84.01 kg 84.01 kg eCW1 ([facility]) Body height 65 [in_i] 65 [in_i] eCW1 ([facility]) Body mass index (BMI) [Ratio] 30.819 kg/m2 30.8 19 kg/m2 eCW1 ([facility]) Systolic blood pressure 124 mm[Hg] 124 mm[Hg] e CW1 ([facility]) Diastolic blood pressure 84 mm[Hg] 84 mm[Hg] eCW1 ([facility]) Body weight 183.0 [lb_av] 183.0 [lb_av] eCW1 ([facility]) Body height 65 [in_i] 65 [in_i] eCW1 ([facility]) Body mass index (BMI) [Ratio] 30.45 kg/m2 30.45 kg/m2 eCW1 ([facility]) Heart rate 120 /min 120 /min eCW1 (On license of [facility]) Respiratory rate 20 /min 20 /min eCW1 ([facility]) Body temperature 97.3 [degF] 97.3 [degF] eCW1 ( [facility]) Systolic blood pressure 120 mm[Hg] 120 mm[Hg] e CW1 ([facility]) Diastolic blood pressure 76 mm[Hg] 76 mm[Hg] eCW1 ([facility]) Body weight 189.8 [lb_av] 189.8 [lb_av] eCW1 ([facility]) Body height 65 [in_i] 65 [in_i] eCW1 ([facility]) Body mass index (BMI) [Ratio] 31.584 kg/m2 31.5 84 kg/m2 eCW1 ([facility]) Systolic blood pressure 122 mm[Hg] 122 mm[Hg] e CW1 ([facility]) Diastolic blood pressure 74 mm[Hg] 74 mm[Hg] eCW1 ([facility]) Body weight 191.4 [lb_av] 191.4 [lb_av] eCW1 ([facility]) Body weight 86.82 kg 86.82 kg eCW1 ([facility]) Body height 65 [in_i] 65 [in_i] eCW1 ([facility]) Body mass index (BMI) [Ratio] 31.851 kg/m2 31.8 51 kg/m2 eCW1 ([facility]) Systolic blood pressure 114 mm[Hg] 114 mm[Hg] e CW1 ([facility]) Diastolic blood pressure 68 mm[Hg] 68 mm[Hg] eCW1 ([facility]) Patient Treatment Plan of Care Planned Activity Planned Date Details Description Data Source (s) Promethazine Hydrochloride 12.5 MG Oral Tablet 06/05/2021 12:00:00 AM EDT eCW1 ([facility]) Promethazine Hydrochloride 12.5 MG Oral Tablet 06/05/2021 12:00:00 AM EDT eCW1 ([facility]) NITROFURANTOIN, MACROCRYSTALS 25 MG / Ni trofurantoin, Monohydrate 75 MG Oral Capsule [Macrobid] 04/22/2021 12:00:00 AM EDT eC W1 ([facility]) NITROFURANTOIN, MACROCRYSTALS 25 MG / Ni trofurantoin, Monohydrate 75 MG Oral Capsule [Macrobid] 04/22/2021 12:00:00 AM EDT eC W1 ([facility]) Amoxicillin 875 MG Oral Tablet 03/02/2021 12:00:00 AM EDT eCW1 ([facility]) Ondansetron 4 MG Disintegrating Oral Tablet 02/19/2021 12:00:00 AM EDT eCW1 ([facility]) Levothyroxine Sodium 0.025 MG Oral Tablet 02/19/2021 12:00:00 AM ED T eCW1 ([facility]) Ondansetron 4 MG Disintegrating Oral Tablet 02/19/2021 12:00:00 AM EDT eCW1 ([facility]) Levothyroxine Sodium 0.025 MG Oral Tablet 02/19/2021 12:00:00 AM ED T eCW1 ([facility]) Ondansetron 4 MG Disintegrating Oral Tablet 02/19/2021 12:00:00 AM EDT eCW1 ([facility]) Levothyroxine Sodium 0.025 MG Oral Tablet 02/19/2021 12:00:00 AM ED T eCW1 ([facility]) Ondansetron 4 MG Disintegrating Oral Tablet 02/19/2021 12:00:00 AM EDT eCW1 ([facility]) Levothyroxine Sodium 0.025 MG Oral Tablet 02/19/2021 12:00:00 AM ED T eCW1 ([facility]) Ondansetron 4 MG Disintegrating Oral Tablet 02/19/2021 12:00:00 AM EDT eCW1 ([facility]) Levothyroxine Sodium 0.025 MG Oral Tablet 02/19/2021 12:00:00 AM ED T eCW1 ([facility]) Levothyroxine Sodium 0.05 MG Oral Tablet 12/25/2020 12:00:00 AM EDT eCW1 ([facility])
--- OUTSIDE RECORDS SUMMARY | 2021-07-04 23:46 | CCD ---
Author Author [facility] Organization [facility] Address Unknown Phone Unavailable Care Team Providers Care Media Monitor Name Role Phone IsaiasKirk Unavailable PROBLEMS Type Condition ICD9-CM Code QSL53-SM Code Onset Dates Condition S tatus W/U Status Risk SNOMED Code Notes Problem Scoliosis, unspecified scoliosis type, unspecifi ed spinal region M41.9 Active confirmed 978463680 Problem Anxiety F41.9 Active confirmed 60263685 Problem Supervision of other normal Z34.80 Ac tive confirm [id number] Problem History of hypothyroidism Z86.39 Active confirmed [id number] ALLERGIES No Known Allergies ENCOUNTERS from 1998 to 2021-04-23 Encounter Location Date Provider Diagnosis [facility] [address] [place] [address] [place] [address] Mar, Kirk Esparza Encounter for pregna ncy related examination in second trimester Z34.92 and Hypothyroid in , antepartum O99.280 IMMUNIZATIONS No Information SOCIAL HISTORY Tobacco Use: Social History Observation Description Date Details (start date - stop date) Former Smoker Sex Assigned At : Social History Observation Description Sex Assigned At Unknown Education: Question Answer Notes Level of Education: Not Finished College Audit Question Answer Notes Total Score: 0 Interpretation: Alcohol Education Language: Question Answer Notes Languages spoken: Croatian Hoahaoism: Question Answer Notes Hoahaoism 99 Other Pentecostalism Sexual Hx: Question Answer Notes Had sex [...] FOR REFERRAL No Information VITAL SIGNS Weight 186.6 lbs Mar, Weight-kg 84.64 kg Mar, Height 65 in Mar, BMI 31.052 kg/m2 Mar, Blood pressure systolic 120 mm Hg Mar, Blood pressure diastolic 80 mm Hg Mar, MEDICATIONS Medication SIG (Take, Route, Frequency, Duration) [...] needed Orally every 4 hrs Not-Taking PROCEDURES No Information RESULTS Component Value Reference Range Type and Screen (D Rh Antibody Screen) Reviewed date:04/22/2021 16:14:53 Interpretation: Performing Lab:[facility] [address] [place] [id number] , ,[place] [id number] BLOOD TYPE A POSITIVE AB SCREEN (INDIRECT RALPH)VIS NEGATIVE CBC - Complete Blood Count Reviewed date:04/22/2021 15:58:47 Interpretation: Performing Lab:[facility] [address] [place] [id number] , ,[facility] WHITE BLOOD COUNT 10.2 4.0-10.0 RED BLOOD COUNT 4.36 4.00-5.40 HEMOGLOBIN 12.0 12.0-15.5 HEMATOCRIT 37.2 36.0-47.0 MEAN CORPUSCULAR VOLUME 85.3 80.0-96.0 MEAN CORPUSCULAR HEMOGLOBIN 27.5 27.0-33.0 MEAN CORPUSCULAR HGB CONC 32.3 32.0-36.5 RED CELL DISTRIBUTION WIDTH 13.4 11.5-14.5 PLATELET COUNT, AUTOMATED 301 150-450 FREE T4 & TSH PANEL Reviewed date:04/22/2021 16:15:07 Interpretation: Performing Lab:[facility] [address] [facility] [id number] , ,[facility] THYROID STIMULATING HORMONE 2.700 0.358-3.740 FREE T4 1.03 0.76-1.46 LIVER PROFILE Reviewed date:04/22/2021 16:18:57 Interpretation: Performing Lab:[facility] [address] [facility] [id number] , ,[facility] AST/SGOT 9 7-37 ALT/SGPT 23 12-78 ALKALINE PHOSPHATASE 159 45-117 BILIRUBIN,TOTAL 0.3 0.2-1.0 BILIRUBIN,DIRECT < 0.1 0.0-0.2 TOTAL PROTEIN 6.7 6.4-8.2 ALBUMIN 2.8 3.2-5.2 ALBUMIN/GLOBULIN RATIO 0.7 1.2-2.2 Glucose Challenge Test 1 Hour Reviewed date:04/22/2021 16:14:57 Interpretation: Performing Lab:[facility] [address] [facility] [address] , ,[facility] GLUCOSE CHALLENGE TEST 1 HOUR 91 LESS THAN 140 REASON FOR VISIT 4 WK PN MEDICAL [...] Notes Treatment Notes Treatm ent Clinical Notes Mar, Encounter for rela padilla examination in second trimester (ICD-10 - Z34.92) Mar, Hypothyroid in , antepartum (ICD-10 - O 99.280) PLAN OF TREATMENT Medication Medication Name Sig Start Date Stop Date Macrobid 100 MG 1 capsule twice a day Orally twice DAY for 7 da ys Apr, Treatment Notes Test Name Order Date BILE ACIDS FRACTIONATED 2021 Next Appt Details 4 Weeks Reason: Provider Name:Roderick Balderas, 2021-05-20 03:30:00 PM, [address] [place], [place] [address], [place], [address], Provider Name:Caitlin Liam Mo, 2021-06-03 0 2:00:00 PM, [address] [place] [address], [place], [address], Provider Name:Chastity Vaughn, 2021-06-17 02:40:00 PM, [address] [place] [address], [place], [address], Insurance Providers Payer Name Payer Address Payer Phone Insured Name Patient Relati onship to Insured Coverage Start Date Coverage End Date [facility] [employer] [id number] [place] [id number] PAUL RAHMAN self
--- OUTSIDE RECORDS SUMMARY | 2021-07-05 00:43 | CCD ---
Author Author [facility] Organization [facility] Address Unknown Phone Unavailable Support Name Relationship Address Phone UE Next Of Kin Unknown Unavailable ROMI DUKES Next Of Kin [phone] [facility] [place], [place] [id number] [place] [address] ROMI DUKES E[id number] [place] [address] Unavailable Re-disclosure Warning The records that you are [...] is protected by Article 27-F of the [facility] Public Health law. If you continue you may have access to information: Regarding HIV / AIDS; Provided by facilities licensed or operated by the [facility] Office of Mental Health; or Provided by the [facility] Office for People With Developmental Disabilities. If such information is present, then the following [facility] mandated warning applies: This information has been [...] law may result in a fine or fdc sentence or both. A general authorization for the release of medical or other information is NOT sufficient authorization for further disc losure. Encounters Encounter Providers Location Date Indications Data Source(s ) ( COB) [facility] [address] [place] [address] 06/30/2021 12:00:00 AM EST eCW1 ([facility]) ( COB) [facility] [address] [place] [address] 06/23/2021 12:00:00 AM EST eCW1 ([facility]) Unknown [address] [facility], [facility] [address] 06/05/2021 12:00:00 AM EDT eCW1 ([facility]) Unknown [address] [facility] [address] 06/05/2021 12:00:00 AM EDT eCW1 ([facility]) ( ESTOB) [facility] [address] [place] [address] 06/03/2021 12:00:00 AM EDT eCW1 ([facility]) Unknown [address] [facility] [address] 06/03/2021 12:00:00 AM EDT eCW1 ([facility]) ( ESTOB) [facility] [address] [place] [address] 05/20/2021 12:00:00 AM EDT eCW1 ([facility]) ( ESTOB) [facility] [address] [place] [address] 04/22/2021 12:00:00 AM EDT eCW1 ([facility]) ( ESTOB) [facility] [address] [place] [address] 2021 12:00:00 AM EDT eCW1 ([facility]) Outpatient [address] [facility] [address] 03/02/2021 12:00:00 AM EDT eCW1 ([facility]) Unknown [address] [facility] [address] 03/02/2021 12:00:00 AM EDT eCW1 ([facility]) Unknown [address] [facility] [address] 02/26/2021 12:00:00 AM EDT eCW1 ([facility]) [place] [address] [facility] [address] 02/20/2021 12:00:00 AM EDT eCW1 ([facility]) (WC ESTOB) [facility] [address] [place] [address] 02/19/2021 12:00:00 AM EDT eCW1 ([facility]) [place] [address] [facility] [address] 02/02/2021 12:00:00 AM EDT eCW1 ([facility]) [place] [address] [facility] [address] 02/02/2021 12:00:00 AM EDT eCW1 ([facility]) [place] [address] [facility] [address] 01/29/2021 12:00:00 AM EDT eCW1 ([facility]) [place] [address] [facility] [address] 01/26/2021 12:00:00 AM EDT eCW1 ([facility]) ( ESTOB) [facility] [address] [place] [address] 01/22/2021 12:00:00 AM EDT eCW1 ([facility]) (WC ESTOB) [facility] [address] [place] [address] 12/25/2020 12:00:00 AM EDT eCW1 ([facility]) Immunizations Vaccine Date Status Description Data Source(s) Tdap 06/17/2021 04:52:00 PM EDT completed e CW1 (Replaced By [facility]) Tdap 06/17/2021 04:52:00 PM EDT completed e CW1 (Replaced By [facility]) Tdap 06/17/2021 04:52:00 PM EDT completed e CW1 (Replaced By [facility]) COVID-19 VACCINE Moderna 04/25/2021 12:00:00 AM EDT completed [facility] Vaccine Series Complete: YESThis Data wa s Submitted to [facility] Via [employer]. COVID-19 VACCINE Moderna 03/28/2021 12:00:00 AM EDT completed [facility] Vaccine Series Complete: NOThis Data was Submitted to [facility] Via [employer]. Medications Medication Brand Name Start Date Product Form Dose Route Admi nistrative Instructions Pharmacy Instructions Status Indications Reaction Description Data Source(s) Ursodiol 300 MG Oral Capsule Ursodiol 300 MG 06/16/2021 12:00:00 AM EDT 1.0 {capsule} active Ursodiol 300 MG eCW1 ( Replaced By [facility]) Ursodiol 300 MG Oral Capsule Ursodiol 300 MG 06/16/2021 12:00:00 AM EDT 1.0 {capsule} active Ursodiol 300 MG eCW1 ( Replaced By [facility]) Ursodiol 300 MG Oral Capsule Ursodiol 300 MG 06/16/2021 12:00:00 AM EDT 1.0 {capsule} active Ursodiol 300 MG eCW1 ( Replaced By [facility]) Promethazine Hydrochloride 12.5 MG Oral Tablet Prometh azine HCl 12.5 MG Promethazine HCl 12.5 MG 06/05/2021 12:00:00 AM EDT 1.0 {tablet_as_ needed} active Promethazine HCl 12.5 MG eCW1 (Replaced By [facility]) Promethazine Hydrochloride 12.5 MG Oral Tablet Prometh azine HCl 12.5 MG Promethazine HCl 12.5 MG 06/05/2021 12:00:00 AM EDT 1.0 {tablet_as_ needed} active Promethazine HCl 12.5 MG eCW1 (Replaced By [facility]) Promethazine Hydrochloride 12.5 MG Oral Tablet Prometh azine HCl 12.5 MG Promethazine HCl 12.5 MG 06/05/2021 12:00:00 AM EDT 1.0 {tablet_as_ needed} active Promethazine HCl 12.5 MG eCW1 (Replaced By [facility]) Promethazine Hydrochloride 12.5 MG Oral Tablet Prometh azine HCl 12.5 MG Promethazine HCl 12.5 MG 06/05/2021 12:00:00 AM EDT 1.0 {tablet_as_ needed} active Promethazine HCl 12.5 MG eCW1 (Replaced By [facility]) Promethazine Hydrochloride 12.5 MG Oral Tablet Prometh azine HCl 12.5 MG Promethazine HCl 12.5 MG 06/05/2021 12:00:00 AM EDT 1.0 {tablet_as_ needed} active Promethazine HCl 12.5 MG eCW1 (Replaced By [facility]) NITROFURANTOIN, MACROCRYSTALS 25 MG / Ni trofurantoin, Monohydrate 75 MG Oral Capsule [Macrobid] Macrobid 100 MG Macrobid 100 MG 04/22/2021 12:00:00 AM EDT active Macrobid 100 MG eCW1 (Formerly [facility]) NITROFURANTOIN, MACROCRYSTALS 25 MG / Ni trofurantoin, Monohydrate 75 MG Oral Capsule [Macrobid] Macrobid 100 MG Macrobid 100 MG 04/22/2021 12:00:00 AM EDT active Macrobid 100 MG eCW1 (Formerly [facility]) Amoxicillin 875 MG Oral Tablet Amoxicillin 875 MG 03/02/2021 12:00: 00 AM EDT 1.0 {tablet} suspended Amoxicillin 875 M G eCW1 (Replaced By [facility]) Amoxicillin 875 MG Oral Tablet Amoxicillin 875 MG 03/02/2021 12:00: 00 AM EDT 1.0 {tablet} suspended Amoxicillin 875 M G eCW1 (Replaced By [facility]) Amoxicillin 875 MG Oral Tablet Amoxicillin 875 MG 03/02/2021 12:00: 00 AM EDT 1.0 {tablet} suspended Amoxicillin 875 M G eCW1 (Replaced By [facility]) Amoxicillin 875 MG Oral Tablet Amoxicillin 875 MG 03/02/2021 12:00: 00 AM EDT 1.0 {tablet} suspended Amoxicillin 875 M G eCW1 (Replaced By [facility]) Amoxicillin 875 MG Oral Tablet Amoxicillin 875 MG 03/02/2021 12:00: 00 AM EDT 1.0 {tablet} active Amoxicillin 875 MG eCW1 (Replaced By [facility]) Amoxicillin 875 MG Oral Tablet Amoxicillin 875 MG 03/02/2021 12:00: 00 AM EDT 1.0 {tablet} suspended Amoxicillin 875 M G eCW1 (Replaced By [facility]) Amoxicillin 875 MG Oral Tablet Amoxicillin 875 MG 03/02/2021 12:00: 00 AM EDT 1.0 {tablet} active Amoxicillin 875 MG eCW1 (Replaced By [facility]) Amoxicillin 875 MG Oral Tablet Amoxicillin 875 MG 03/02/2021 12:00: 00 AM EDT 1.0 {tablet} suspended Amoxicillin 875 M G eCW1 (Replaced By [facility]) Amoxicillin 875 MG Oral Tablet Amoxicillin 875 MG 03/02/2021 12:00: 00 AM EDT 1.0 {tablet} suspended Amoxicillin 875 M G eCW1 (Replaced By [facility]) Amoxicillin 875 MG Oral Tablet Amoxicillin 875 MG 03/02/2021 12:00: 00 AM EDT 1.0 {tablet} suspended Amoxicillin 875 M G eCW1 (Replaced By [facility]) Amoxicillin 875 MG Oral Tablet Amoxicillin 875 MG 03/02/2021 12:00: 00 AM EDT 1.0 {tablet} suspended Amoxicillin 875 M G eCW1 (Replaced By [facility]) Levothyroxine Sodium 0.025 MG Oral Tablet Levothyroxin e Sodium 25 MCG Levothyroxine Sodium 25 MCG 02/19/2021 12:00:00 AM EDT suspended Levothyroxine Sodium 25 MCG eCW1 (Replaced By [facility]) Ondansetron 4 MG Disintegrating Oral Tablet Ondansetron 4 MG 02/19/2021 12:00:00 AM EDT 1.0 {tablet_on_the_tongue_and_allow_to_dissolve} active Ondansetron 4 MG eCW1 (Replaced By [facility]) Levothyroxine Sodium 0.025 MG Oral Tablet Levothyroxin e Sodium 25 MCG Levothyroxine Sodium 25 MCG 02/19/2021 12:00:00 AM EDT active Levothyroxine Sodium 25 MCG eCW1 (Replaced By [facility]) Ondansetron 4 MG Disintegrating Oral Tablet Ondansetron 4 MG 02/19/2021 12:00:00 AM EDT 1.0 {tablet_on_the_tongue_and_allow_to_dissolve} active Ondansetron 4 MG eCW1 (Replaced By [facility]) Levothyroxine Sodium 0.025 MG Oral Tablet Levothyroxin e Sodium 25 MCG Levothyroxine Sodium 25 MCG 02/19/2021 12:00:00 AM EDT active Levothyroxine Sodium 25 MCG eCW1 (Replaced By [facility]) Levothyroxine Sodium 0.025 MG Oral Tablet Levothyroxin e Sodium 25 MCG Levothyroxine Sodium 25 MCG 02/19/2021 12:00:00 AM EDT active Levothyroxine Sodium 25 MCG eCW1 (Replaced By [facility]) Levothyroxine Sodium 0.025 MG Oral Tablet Levothyroxin e Sodium 25 MCG Levothyroxine Sodium 25 MCG 02/19/2021 12:00:00 AM EDT suspended Levothyroxine Sodium 25 MCG eCW1 (Replaced By [facility]) Ondansetron 4 MG Disintegrating Oral Tablet Ondansetron 4 MG 02/19/2021 12:00:00 AM EDT 1.0 {tablet_on_the_tongue_and_allow_to_dissolve} active Ondansetron 4 MG eCW1 (Replaced By [facility]) Ondansetron 4 MG Disintegrating Oral Tablet Ondansetron 4 MG 02/19/2021 12:00:00 AM EDT 1.0 {tablet_on_the_tongue_and_allow_to_dissolve} active Ondansetron 4 MG eCW1 (Replaced By [facility]) Ondansetron 4 MG Disintegrating Oral Tablet Ondansetron 4 MG 02/19/2021 12:00:00 AM EDT 1.0 {tablet_on_the_tongue_and_allow_to_dissolve} active Ondansetron 4 MG eCW1 (Replaced By [facility]) Ondansetron 4 MG Disintegrating Oral Tablet Ondansetron 4 MG 02/19/2021 12:00:00 AM EDT 1.0 {tablet_on_the_tongue_and_allow_to_dissolve} active Ondansetron 4 MG eCW1 (Replaced By [facility]) Ondansetron 4 MG Disintegrating Oral Tablet Ondansetron 4 MG 02/19/2021 12:00:00 AM EDT 1.0 {tablet_on_the_tongue_and_allow_to_dissolve} active Ondansetron 4 MG eCW1 (Replaced By [facility]) Levothyroxine Sodium 0.025 MG Oral Tablet Levothyroxin e Sodium 25 MCG Levothyroxine Sodium 25 MCG 02/19/2021 12:00:00 AM EDT suspended Levothyroxine Sodium 25 MCG eCW1 (Replaced By [facility]) Levothyroxine Sodium 0.025 MG Oral Tablet Levothyroxin e Sodium 25 MCG Levothyroxine Sodium 25 MCG 02/19/2021 12:00:00 AM EDT active Levothyroxine Sodium 25 MCG eCW1 (Replaced By [facility]) Ondansetron 4 MG Disintegrating Oral Tablet Ondansetron 4 MG 02/19/2021 12:00:00 AM EDT 1.0 {tablet_on_the_tongue_and_allow_to_dissolve} active Ondansetron 4 MG eCW1 (Replaced By [facility]) Levothyroxine Sodium 0.025 MG Oral Tablet Levothyroxin e Sodium 25 MCG Levothyroxine Sodium 25 MCG 02/19/2021 12:00:00 AM EDT suspended Levothyroxine Sodium 25 MCG eCW1 (Replaced By [facility]) Ondansetron 4 MG Disintegrating Oral Tablet Ondansetron 4 MG 02/19/2021 12:00:00 AM EDT 1.0 {tablet_on_the_tongue_and_allow_to_dissolve} active Ondansetron 4 MG eCW1 (Replaced By [facility]) Levothyroxine Sodium 0.025 MG Oral Tablet Levothyroxin e Sodium 25 MCG Levothyroxine Sodium 25 MCG 02/19/2021 12:00:00 AM EDT suspended Levothyroxine Sodium 25 MCG eCW1 (Replaced By [facility]) Levothyroxine Sodium 0.025 MG Oral Tablet Levothyroxin e Sodium 25 MCG Levothyroxine Sodium 25 MCG 02/19/2021 12:00:00 AM EDT active Levothyroxine Sodium 25 MCG eCW1 (Replaced By [facility]) Levothyroxine Sodium 0.025 MG Oral Tablet Levothyroxin e Sodium 25 MCG Levothyroxine Sodium 25 MCG 02/19/2021 12:00:00 AM EDT suspended Levothyroxine Sodium 25 MCG eCW1 (Replaced By [facility]) Levothyroxine Sodium 0.025 MG Oral Tablet Levothyroxin e Sodium 25 MCG Levothyroxine Sodium 25 MCG 02/19/2021 12:00:00 AM EDT active Levothyroxine Sodium 25 MCG eCW1 (Replaced By [facility]) Ondansetron 4 MG Disintegrating Oral Tablet Ondansetron 4 MG 02/19/2021 12:00:00 AM EDT 1.0 {tablet_on_the_tongue_and_allow_to_dissolve} active Ondansetron 4 MG eCW1 (Replaced By [facility]) Ondansetron 4 MG Disintegrating Oral Tablet Ondansetron 4 MG 02/19/2021 12:00:00 AM EDT 1.0 {tablet_on_the_tongue_and_allow_to_dissolve} active Ondansetron 4 MG eCW1 (Replaced By [facility]) Levothyroxine Sodium 0.025 MG Oral Tablet Levothyroxin e Sodium 25 MCG Levothyroxine Sodium 25 MCG 02/19/2021 12:00:00 AM EDT suspended Levothyroxine Sodium 25 MCG eCW1 (Replaced By [facility]) Levothyroxine Sodium 0.025 MG Oral Tablet Levothyroxin e Sodium 25 MCG Levothyroxine Sodium 25 MCG 02/19/2021 12:00:00 AM EDT active Levothyroxine Sodium 25 MCG eCW1 (Replaced By [facility]) Levothyroxine Sodium 0.025 MG Oral Tablet Levothyroxin e Sodium 25 MCG Levothyroxine Sodium 25 MCG 02/19/2021 12:00:00 AM EDT active Levothyroxine Sodium 25 MCG eCW1 (Replaced By [facility]) Levothyroxine Sodium 0.025 MG Oral Tablet Levothyroxin e Sodium 25 MCG Levothyroxine Sodium 25 MCG 02/19/2021 12:00:00 AM EDT active Levothyroxine Sodium 25 MCG eCW1 (Replaced By [facility]) Levothyroxine Sodium 0.05 MG Oral Tablet Levothyroxine Sodium 50 MCG Levothyroxine Sodium 50 MCG 12/25/2020 12:00:00 AM EDT suspended Levothyroxine Sodium 50 MCG eCW1 (Replaced By [facility]) Levothyroxine Sodium 0.05 MG Oral Tablet Levothyroxine Sodium 50 MCG Levothyroxine Sodium 50 MCG 12/25/2020 12:00:00 AM EDT active Levothyroxine Sodium 50 MCG eCW1 (Replaced By [facility]) Levothyroxine Sodium 0.05 MG Oral Tablet Levothyroxine Sodium 50 MCG Levothyroxine Sodium 50 MCG 12/25/2020 12:00:00 AM EDT suspended Levothyroxine Sodium 50 MCG eCW1 (Replaced By [facility]) Levothyroxine Sodium 0.05 MG Oral Tablet Levothyroxine Sodium 50 MCG Levothyroxine Sodium 50 MCG 12/25/2020 12:00:00 AM EDT suspended Levothyroxine Sodium 50 MCG eCW1 (Replaced By [facility]) Levothyroxine Sodium 0.05 MG Oral Tablet Levothyroxine Sodium 50 MCG Levothyroxine Sodium 50 MCG 12/25/2020 12:00:00 AM EDT suspended Levothyroxine Sodium 50 MCG eCW1 (Replaced By [facility]) Levothyroxine Sodium 0.05 MG Oral Tablet Levothyroxine Sodium 50 MCG Levothyroxine Sodium 50 MCG 12/25/2020 12:00:00 AM EDT suspended Levothyroxine Sodium 50 MCG eCW1 (Replaced By [facility]) Levothyroxine Sodium 0.05 MG Oral Tablet Levothyroxine Sodium 50 MCG Levothyroxine Sodium 50 MCG 12/25/2020 12:00:00 AM EDT suspended Levothyroxine Sodium 50 MCG eCW1 (Replaced By [facility]) Levothyroxine Sodium 0.05 MG Oral Tablet Levothyroxine Sodium 50 MCG Levothyroxine Sodium 50 MCG 12/25/2020 12:00:00 AM EDT suspended Levothyroxine Sodium 50 MCG eCW1 (Replaced By [facility]) Levothyroxine Sodium 0.05 MG Oral Tablet Levothyroxine Sodium 50 MCG Levothyroxine Sodium 50 MCG 12/25/2020 12:00:00 AM EDT suspended Levothyroxine Sodium 50 MCG eCW1 (Replaced By [facility]) Levothyroxine Sodium 0.05 MG Oral Tablet Levothyroxine Sodium 50 MCG Levothyroxine Sodium 50 MCG 12/25/2020 12:00:00 AM EDT suspended Levothyroxine Sodium 50 MCG eCW1 (Replaced By [facility]) Levothyroxine Sodium 0.05 MG Oral Tablet Levothyroxine Sodium 50 MCG Levothyroxine Sodium 50 MCG 12/25/2020 12:00:00 AM EDT suspended Levothyroxine Sodium 50 MCG eCW1 (Replaced By [facility]) Levothyroxine Sodium 0.05 MG Oral Tablet Levothyroxine Sodium 50 MCG Levothyroxine Sodium 50 MCG 12/25/2020 12:00:00 AM EDT suspended Levothyroxine Sodium 50 MCG eCW1 (Replaced By [facility]) Levothyroxine Sodium 0.05 MG Oral Tablet Levothyroxine Sodium 50 MCG Levothyroxine Sodium 50 MCG 12/25/2020 12:00:00 AM EDT suspended Levothyroxine Sodium 50 MCG eCW1 (Replaced By [facility]) Levothyroxine Sodium 0.05 MG Oral Tablet Levothyroxine Sodium 50 MCG Levothyroxine Sodium 50 MCG 12/25/2020 12:00:00 AM EDT suspended Levothyroxine Sodium 50 MCG eCW1 (Replaced By [facility]) Levothyroxine Sodium 0.05 MG Oral Tablet Levothyroxine Sodium 50 MCG Levothyroxine Sodium 50 MCG 12/25/2020 12:00:00 AM EDT suspended Levothyroxine Sodium 50 MCG eCW1 (Replaced By [facility]) Levothyroxine Sodium 0.05 MG Oral Tablet Levothyroxine Sodium 50 MCG Levothyroxine Sodium 50 MCG 12/25/2020 12:00:00 AM EDT suspended Levothyroxine Sodium 50 MCG eCW1 (Replaced By [facility]) Levothyroxine Sodium 0.05 MG Oral Tablet Levothyroxine Sodium 50 MCG Levothyroxine Sodium 50 MCG 12/25/2020 12:00:00 AM EDT suspended Levothyroxine Sodium 50 MCG eCW1 (Replaced By [facility]) Levothyroxine Sodium 0.05 MG Oral Tablet Levothyroxine Sodium 50 MCG Levothyroxine Sodium 50 MCG 12/25/2020 12:00:00 AM EDT active Levothyroxine Sodium 50 MCG eCW1 (Replaced By [facility]) Levothyroxine Sodium 0.05 MG Oral Tablet Levothyroxine Sodium 50 MCG Levothyroxine Sodium 50 MCG 12/25/2020 12:00:00 AM EDT suspended Levothyroxine Sodium 50 MCG eCW1 (Replaced By [facility]) Levothyroxine Sodium 0.05 MG Oral Tablet Levothyroxine Sodium 50 MCG Levothyroxine Sodium 50 MCG 12/25/2020 12:00:00 AM EDT active Levothyroxine Sodium 50 MCG eCW1 (Replaced By [facility]) Insurance Providers Payer name Policy type / Coverage type Policy ID Covered libertarian ID Covered libertarian's relationship to jarrell Policy Jarrell Plan Information [facility] [id number] SP [id number] [facility] [id number] [facility] [id number] [facility] [id number] SP [id number] Problems, Conditions, and Diagnoses Code Display Name Description Problem Type Effective Dates Data Source(s) 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 Problem 06/30/2021 12:00:00 AM EST eCW1 ([facility]) K83.1 [id number] Obstruction of bile duct Problem 06/16/2021 12:00:00 AM EDT eCW1 (Replaced By [facility]) M41.9 [id number] Scoliosis, unspecifi ed scoliosis type, unspecified spinal region Problem 02/20/2021 12:00:00 AM EDT eCW1 ([facility]) F41.9 Anxiety Anxiety Problem 02/19/2021 12:00:00 AM ED T eCW1 (Replaced By [facility]) Z86.39 [id number] History of hypothyroidism Problem 02/02/2021 12:00:00 AM EDT eCW1 (Replaced By [facility]) Z34.80 care Supervision of other normal P roblem 12/24/2020 12:00:00 AM EDT eCW1 (Replaced By [facility]) Surgeries/Procedures Procedure Description Date Indications Data Source(s) NONSTRESS TEST 06/30/2021 12:00:00 AM EST eCW1 (Replaced By [facility]) NONSTRESS TEST 06/23/2021 12:00:00 AM EST eCW1 (Replaced By [facility]) URINE-NO MICRO 04/22/2021 12:00:00 AM EDT eCW1 (Replaced By [facility]) Results ID Date Data Source BILE ACIDS FRACTIONATED 06/03/2021 12:00:00 AM EDT eCW1 (Formerly [facility]) Name Value Range Interpretation Code Description Data Melly rce(s) Supporting Document(s) 18.8 0.0-10.0 BILE ACIDS FRACTIONATED eCW1 ( Replaced By [facility]) ID Date Data Source LIVER PROFILE 06/03/2021 12:00:00 AM EDT eCW1 ([facility]) Name Value Range Interpretation Code Description Data Melly rce(s) Supporting Document(s) 31 12-78 ALT/SGPT eCW1 ([facility]) 19 7-37 AST/SGOT eCW1 ([facility]) 241 45-117 ALKALINE PHOSPHATASE eCW1 (Formerly [facility]) 0.3 0.2-1.0 BILIRUBIN,TOTAL eCW1 (Critical access hospital) 6.5 6.4-8.2 TOTAL PROTEIN eCW1 (Replaced By [facility]) 0.1 0.0-0.2 BILIRUBIN,DIRECT eCW1 ([facility]) 0.7 1.2-2.2 ALBUMIN/GLOBULIN RATIO eCW1 ([facility]) 2.7 3.2-5.2 ALBUMIN eCW1 ([facility]) ID Date Data Source Glucose Challenge Test 1 Hour 04/22/2021 12:00:00 AM EDT eCW 1 (Replaced By [facility]) Name Value Range Interpretation Code Description Data Melly rce(s) Supporting Document(s) 91 LESS THAN 140 GLUCOSE CHALLENGE TEST 1 HOUR eCW1 (Replaced By [facility]) ID Date Data Source FREE T4 & TSH PANEL 04/22/2021 12:00:00 AM EDT eCW1 ([facility]) Name Value Range Interpretation Code Description Data Melly rce(s) Supporting Document(s) 2.700 0.358-3.740 THYROID STIMULATING HORM ONE eCW1 (Replaced By [facility]) 1.03 0.76-1.46 FREE T4 eCW1 ([facility]) ID Date Data Source CBC - Complete Blood Count 04/22/2021 12:00:00 AM EDT eCW1 ( Replaced By [facility]) Name Value Range Interpretation Code Description Data Melly rce(s) Supporting Document(s) 10.2 4.0-10.0 WHITE BLOOD COUNT eCW1 ([facility]) 4.36 4.00-5.40 RED BLOOD COUNT eCW1 (Critical access hospital) 12.0 12.0-15.5 HEMOGLOBIN eCW1 (Critical access hospital) 27.5 27.0-33.0 MEAN CORPUSCULAR HEMOGLOB IN eCW1 (Replaced By [facility]) 37.2 36.0-47.0 HEMATOCRIT eCW1 (Critical access hospital) 85.3 80.0-96.0 MEAN CORPUSCULAR VOLUME e CW1 (Replaced By [facility]) 301 150-450 PLATELET COUNT, AUTOMATED eCW1 (Replaced By [facility]) 13.4 11.5-14.5 RED CELL DISTRIBUTION WID TH eCW1 (Replaced By [facility]) 32.3 32.0-36.5 MEAN CORPUSCULAR HGB CONC eCW1 (Replaced By [facility]) ID Date Data Source Type and Screen (D Rh Antibody Screen) 04/22/2021 12:00:00 A M EDT eCW1 (Replaced By [facility]) Name Value Range Interpretation Code Description Data Melly rce(s) Supporting Document(s) A POSITIVE BLOOD TYPE eCW1 ([facility]) NEGATIVE AB SCREEN (INDIRECT COOMB S)VIS W1 (Replaced By [facility]) ID Date Data Source [id number] 03/02/2021 02:00:00 PM EDT [facility] Name Value Range Interpretation Code Description Data Melly rce(s) Supporting Document(s) SARS-CoV-2 (COVID-19) RNA [Presence] in Respiratory specimen by BENJAMIN with probe detection Not Detected [facility] This lab was ordered by [facility] and reported by Given.to. ID Date Data Source Coronavirus 2019 Nasopharygeal (Send Out) COVID 03/02/2021 1 2:00:00 AM EDT eCW1 (Replaced By [facility]) Name Value Range Interpretation Code Description Data Melly rce(s) Supporting Document(s) Coronavirus 2019 Nasophar ygeal (Send Out) COVID eCW1 (Replaced By [facility]) ID Date Data Source URINE CULTURE 01/22/2021 12:00:00 AM EDT eCW1 (Formerly [facility], later [facility]) Name Value Range Interpretation Code Description Data Melly rce(s) Supporting Document(s) URINE CULTURE eCW1 (Replaced By [facility]) ID Date Data Source Pre Eclampsia Profile 12/25/2020 12:00:00 AM EDT eCW1 ([facility]) Name Value Range Interpretation Code Description Data Melly rce(s) Supporting Document(s) 0.63 0.55-1.30 CREATININE FOR GFR eCW1 ([facility]) > 60.0 >60 GLOMERULAR FILTRATION RATE eCW 1 (Replaced By [facility]) 128 84-246 LDH LACTATE DEHYDROGENASE eCW1 (Replaced By [facility]) 3.0 2.6-6.0 URIC ACID eCW1 ([facility]) ID Date Data Source HBSAG 12/25/2020 12:00:00 AM EDT eCW1 (Formerly [facility] later [facility]) Name Value Range Interpretation Code Description Data Melly rce(s) Supporting Document(s) NEGATIVE NEGATIVE HBsAg eCW1 (Replaced By [facility]) ID Date Data Source RUBELLA IMMUNE STATUS IgG 12/25/2020 12:00:00 AM EDT eCW1 ([facility]) Name Value Range Interpretation Code Description Data Melly rce(s) Supporting Document(s) IMMUNE IMMUNE RUBELLA IgG QUALITATIVE eCW1 ( Replaced By [facility]) ID Date Data Source SYPHILIS ANTIBODY (RPR SCREEN) 12/25/2020 12:00:00 AM EDT eC W1 (Replaced By [facility]) Name Value Range Interpretation Code Description Data Melly rce(s) Supporting Document(s) NONREACTIVE NONREACTIVE SYPHILIS eCW1 (Replaced By [facility]) ID Date Data Source [id number] 12/25/2020 12:00:00 AM EDT eCW1 (Formerly [facility]) Name Value Range Interpretation Code Description Data Melly rce(s) Supporting Document(s) HIV 1&2 ANTIBODY SCREEN eCW1 ( Replaced By [facility]) ID Date Data Source HEPATITIS C ANTIBODY INDEX 12/25/2020 12:00:00 AM EDT eCW1 ( Replaced By [facility]) Name Value Range Interpretation Code Description Data Melly rce(s) Supporting Document(s) < 0.0 <0.8 HEPATITIS C VIRUS VELMA IND EX eCW1 (Replaced By [facility]) ID Date Data Source Type and Screen Prenatal1 12/25/2020 12:00:00 AM EDT eCW1 ([facility]) Name Value Range Interpretation Code Description Data Melly rce(s) Supporting Document(s) NEGATIVE AB SCREEN PNP1 GEL (VIS) eCW1 (Replaced By [facility]) Procedure Social History Code Duration Value Status Description Data Source(s ) Smoking 06/30/2021 12:00:00 AM EST Former Smoker completed Former Smoker eCW1 (Replaced By [facility]) Smoking 06/22/2021 12:00:00 AM EST Former Smoker completed Former Smoker eCW1 (Replaced By [facility]) Smoking 06/22/2021 12:00:00 AM EST Former Smoker completed Former Smoker eCW1 (Replaced By [facility]) Smoking 06/03/2021 12:00:00 AM EDT Former Smoker completed Former Smoker eCW1 (Replaced By [facility]) Smoking 06/03/2021 12:00:00 AM EDT Former Smoker completed Former Smoker eCW1 (Replaced By [facility]) Smoking 06/03/2021 12:00:00 AM EDT Former Smoker completed Former Smoker eCW1 (Replaced By [facility]) Smoking 05/20/2021 12:00:00 AM EDT Former Smoker completed Former Smoker eCW1 (Replaced By [facility]) Smoking 04/22/2021 12:00:00 AM EDT Former Smoker completed Former Smoker eCW1 (Replaced By [facility]) Smoking 04/22/2021 12:00:00 AM EDT Former Smoker completed Former Smoker eCW1 (Replaced By [facility]) Smoking 2021 12:00:00 AM EDT Former Smoker completed Former Smoker eCW1 (Replaced By [facility]) Smoking 03/02/2021 12:00:00 AM EDT Former Smoker completed Former Smoker eCW1 (Replaced By [facility]) Smoking 02/19/2021 12:00:00 AM EDT Former Smoker completed Former Smoker eCW1 (Replaced By [facility]) Smoking 02/19/2021 12:00:00 AM EDT Former Smoker completed Former Smoker eCW1 (Replaced By [facility]) Smoking 02/19/2021 12:00:00 AM EDT Former Smoker completed Former Smoker eCW1 (Replaced By [facility]) Smoking 02/19/2021 12:00:00 AM EDT Former Smoker completed Former Smoker eCW1 (Replaced By [facility]) Smoking 02/19/2021 12:00:00 AM EDT Former Smoker completed Former Smoker eCW1 (Replaced By [facility]) Smoking 02/02/2021 12:00:00 AM EDT Former Smoker completed Former Smoker eCW1 (Replaced By [facility]) Smoking 01/20/2021 12:00:00 AM EDT Current Smoker completed Curre nt Smoker eCW1 (Replaced By [facility]) Smoking 01/20/2021 12:00:00 AM EDT Current Smoker completed Curre nt Smoker eCW1 (Replaced By [facility]) Smoking 12/25/2020 12:00:00 AM EDT Current Smoker completed Curre nt Smoker eCW1 (Replaced By [facility]) Vital Signs ID Date Data Source UNK Name Value Range Interpretation Code Description Data Source(s) Body weight 185.4 [lb_av] 185.4 [lb_av] eCW1 ([facility]) Body weight 84.1 kg 84.1 kg eCW1 (Formerly [facility] later [facility]) Body height 65 [in_i] 65 [in_i] eCW1 (Formerly [facility] later [facility]) Body mass index (BMI) [Ratio] 30.852 kg/m2 30.8 52 kg/m2 eCW1 (Replaced By [facility]) Systolic blood pressure 118 mm[Hg] 118 mm[Hg] e CW1 (Replaced By [facility]) Diastolic blood pressure 70 mm[Hg] 70 mm[Hg] eCW1 (Replaced By [facility]) Systolic blood pressure 124 mm[Hg] 124 mm[Hg] e CW1 (Replaced By [facility]) Diastolic blood pressure 78 mm[Hg] 78 mm[Hg] eCW1 (Replaced By [facility]) Body weight 188.4 [lb_av] 188.4 [lb_av] eCW1 ([facility]) Body height 65 [in_i] 65 [in_i] eCW1 (Formerly [facility] later [facility]) Body mass index (BMI) [Ratio] 31.35 kg/m2 31.35 kg/m2 eCW1 (Replaced By [facility]) Systolic blood pressure 120 mm[Hg] 120 mm[Hg] e CW1 (Replaced By [facility]) Body height 65 [in_i] 65 [in_i] eCW1 (Formerly [facility] later [facility]) Body mass index (BMI) [Ratio] 31.152 kg/m2 31.1 52 kg/m2 eCW1 (Replaced By [facility]) Body weight 187.2 [lb_av] 187.2 [lb_av] eCW1 ([facility]) Body weight 84.91 kg 84.91 kg eCW1 (Formerly [facility]) Diastolic blood pressure 70 mm[Hg] 70 mm[Hg] eCW1 (Replaced By [facility]) Body weight 189 [lb_av] 189 [lb_av] eCW1 ([facility]) Body height 65 [in_i] 65 [in_i] eCW1 (Formerly [facility] later [facility]) Body mass index (BMI) [Ratio] 31.451 kg/m2 31.4 51 kg/m2 eCW1 (Replaced By [facility]) Systolic blood pressure 122 mm[Hg] 122 mm[Hg] e CW1 (Replaced By [facility]) Diastolic blood pressure 72 mm[Hg] 72 mm[Hg] eCW1 (Replaced By [facility]) Body weight 185.8 [lb_av] 185.8 [lb_av] eCW1 ([facility]) Body weight 84.28 kg 84.28 kg eCW1 (Formerly [facility]) Body height 65 [in_i] 65 [in_i] eCW1 (Formerly [facility] later [facility]) Body mass index (BMI) [Ratio] 30.919 kg/m2 30.9 19 kg/m2 eCW1 (Replaced By [facility]) Systolic blood pressure 118 mm[Hg] 118 mm[Hg] e CW1 (Replaced By [facility]) Diastolic blood pressure 76 mm[Hg] 76 mm[Hg] eCW1 (Replaced By [facility]) Body weight 186.6 [lb_av] 186.6 [lb_av] eCW1 ([facility]) Body weight 84.64 kg 84.64 kg eCW1 (Formerly [facility]) Body height 65 [in_i] 65 [in_i] eCW1 (Formerly [facility] later [facility]) Body mass index (BMI) [Ratio] 31.052 kg/m2 31.0 52 kg/m2 eCW1 (Replaced By [facility]) Systolic blood pressure 120 mm[Hg] 120 mm[Hg] e CW1 (Replaced By [facility]) Diastolic blood pressure 80 mm[Hg] 80 mm[Hg] eCW1 (Replaced By [facility]) Body weight 180 [lb_av] 180 [lb_av] eCW1 ([facility]) Body weight kg eCW1 (Formerly [facility]) Body height 65 [in_i] 65 [in_i] eCW1 (Formerly [facility] later [facility]) Body mass index (BMI) [Ratio] 29.95 kg/m2 29.95 kg/m2 eCW1 (Replaced By [facility]) Heart rate 114 /min 114 /min eCW1 ([facility] hospital) Respiratory rate 20 /min 20 /min eCW1 (Formerly [facility]) Body temperature 97.8 [degF] 97.8 [degF] eCW1 ( Replaced By [facility]) Systolic blood pressure 124 mm[Hg] 124 mm[Hg] e CW1 (Replaced By [facility]) Diastolic blood pressure 82 mm[Hg] 82 mm[Hg] eCW1 (Replaced By [facility]) Body weight 185.2 [lb_av] 185.2 [lb_av] eCW1 ([facility]) Body weight 84.01 kg 84.01 kg eCW1 (Formerly [facility]) Body height 65 [in_i] 65 [in_i] eCW1 (Formerly [facility]) Body mass index (BMI) [Ratio] 30.819 kg/m2 30.8 19 kg/m2 eCW1 (Replaced By [facility]) Systolic blood pressure 124 mm[Hg] 124 mm[Hg] e CW1 (Replaced By [facility]) Diastolic blood pressure 84 mm[Hg] 84 mm[Hg] eCW1 (Replaced By [facility]) Body weight 183.0 [lb_av] 183.0 [lb_av] eCW1 ([facility]) Body height 65 [in_i] 65 [in_i] eCW1 (Formerly [facility]) Body mass index (BMI) [Ratio] 30.45 kg/m2 30.45 kg/m2 eCW1 (Replaced By [facility]) Heart rate 120 /min 120 /min eCW1 (Critical [facility] hospital) Respiratory rate 20 /min 20 /min eCW1 (Formerly [facility]) Body temperature 97.3 [degF] 97.3 [degF] eCW1 ( Replaced By [facility]) Systolic blood pressure 120 mm[Hg] 120 mm[Hg] e CW1 (Replaced By [facility]) Diastolic blood pressure 76 mm[Hg] 76 mm[Hg] eCW1 (Replaced By [facility]) Body weight 189.8 [lb_av] 189.8 [lb_av] eCW1 ([facility]) Body height 65 [in_i] 65 [in_i] eCW1 (Formerly [facility]) Body mass index (BMI) [Ratio] 31.584 kg/m2 31.5 84 kg/m2 eCW1 (Replaced By [facility]) Systolic blood pressure 122 mm[Hg] 122 mm[Hg] e CW1 (Replaced By [facility]) Diastolic blood pressure 74 mm[Hg] 74 mm[Hg] eCW1 (Replaced By [facility]) Body weight 191.4 [lb_av] 191.4 [lb_av] eCW1 ([facility]) Systolic blood pressure 114 mm[Hg] 114 mm[Hg] e CW1 (Replaced By [facility]) Diastolic blood pressure 68 mm[Hg] 68 mm[Hg] eCW1 (Replaced By [facility]) Body weight 86.82 kg 86.82 kg eCW1 (Formerly [facility]) Body height 65 [in_i] 65 [in_i] eCW1 (Formerly [facility] later [facility]) Body mass index (BMI) [Ratio] 31.851 kg/m2 31.8 51 kg/m2 eCW1 (Replaced By [facility]) Patient Treatment Plan of Care Planned Activity Planned Date Details Description Data Source (s) Promethazine Hydrochloride 12.5 MG Oral Tablet 06/05/2021 12:00:00 AM EDT eCW1 (Replaced By [facility]) Promethazine Hydrochloride 12.5 MG Oral Tablet 06/05/2021 12:00:00 AM EDT eCW1 (Replaced By [facility]) NITROFURANTOIN, MACROCRYSTALS 25 MG / Ni trofurantoin, Monohydrate 75 MG Oral Capsule [Macrobid] 04/22/2021 12:00:00 AM EDT eC W1 (Replaced By [facility]) NITROFURANTOIN, MACROCRYSTALS 25 MG / Ni trofurantoin, Monohydrate 75 MG Oral Capsule [Macrobid] 04/22/2021 12:00:00 AM EDT eC W1 (Replaced By [facility]) Amoxicillin 875 MG Oral Tablet 03/02/2021 12:00:00 AM EDT eCW1 (Replaced By [facility]) Ondansetron 4 MG Disintegrating Oral Tablet 02/19/2021 12:00:00 AM EDT eCW1 (Replaced By [facility]) Levothyroxine Sodium 0.025 MG Oral Tablet 02/19/2021 12:00:00 AM ED T eCW1 (Replaced By [facility]) Ondansetron 4 MG Disintegrating Oral Tablet 02/19/2021 12:00:00 AM EDT eCW1 (Replaced By [facility]) Levothyroxine Sodium 0.025 MG Oral Tablet 02/19/2021 12:00:00 AM ED T eCW1 (Replaced By [facility]) Ondansetron 4 MG Disintegrating Oral Tablet 02/19/2021 12:00:00 AM EDT eCW1 (Replaced By [facility]) Levothyroxine Sodium 0.025 MG Oral Tablet 02/19/2021 12:00:00 AM ED T eCW1 (Replaced By [facility]) Ondansetron 4 MG Disintegrating Oral Tablet 02/19/2021 12:00:00 AM EDT eCW1 (Replaced By [facility]) Levothyroxine Sodium 0.025 MG Oral Tablet 02/19/2021 12:00:00 AM ED T eCW1 (Replaced By [facility]) Ondansetron 4 MG Disintegrating Oral Tablet 02/19/2021 12:00:00 AM EDT eCW1 (Replaced By [facility]) Levothyroxine Sodium 0.025 MG Oral Tablet 02/19/2021 12:00:00 AM ED T eCW1 (Replaced By [facility]) Levothyroxine Sodium 0.05 MG Oral Tablet 12/25/2020 12:00:00 AM EDT eCW1 (Replaced By [facility])
== END 2021-07-05 00:20 | disposition left against medical advice (07) ==
LOC: M ED 23:39
DX: Z53.21 Procedure and treatment not carried out due to patient leaving prior to being seen by health care provider (principal)

== ENCOUNTER 2021-07-10 12:40 | Inpatient (IN) | payer OTHER ==
[2021-07-10] VITALS (34 sets, daily range): BP systolic 96–143; BP diastolic 51–91
[~2021-07-10] VITALS: Ht 165.1 cm; Wt 84.8 kg
[2021-07-10] MEDS ORDERED: MELA10CA PO (13:11)
[2021-07-10] MEDS ORDERED: ACET325C5 PO (13:11)
[2021-07-10] MEDS ORDERED: URSO300C3 PO (13:13)
[2021-07-10] MEDS ORDERED: OXYTOCIN DRIP 30 UNITS in IV 1 EA IV PRN (13:25)
[2021-07-10] MEDS ORDERED: METHYLERGONOVINE MALEATE 0.2 MG/ML VIAL (J2210) IM PRN (13:25)
[2021-07-10] MEDS ORDERED: LIDOCAINE 1% MDV 20ML VIAL INFIL PRN (13:25)
[2021-07-10 13:59] LABS: HEMATOCRIT 33.4 % (36.0-47.0); HEMOGLOBIN 10.5 g/dl (12.0-15.5); MEAN CORPUSCULAR HGB CONC 31.4 g/dl (32.0-36.5); MEAN CORPUSCULAR VOLUME 79.5 fl (80.0-96.0); PLATELET COUNT, AUTOMATED 294 10^3/uL (150-450); WHITE BLOOD COUNT 11.2 10^3/uL (4.0-10.0)
[2021-07-10] MEDS ORDERED: OXYTOCIN DRIP 30 UNITS in IV 1 EA IV SCH (14:15)
[2021-07-10] MEDS: LR 1,000 ML IV SCH ×2 (14:32→18:25)
[2021-07-10] MEDS ORDERED: FENTANYL 2MCG/ML ROPIVACAINE 0.2% IN 0.9% NACL 100ML IVBAG As Ordered ONE (16:09)
[2021-07-10] MEDS ORDERED: FENTANYL/ROPIVACAINE/NACL BAG 100 ML EPIDURAL SCH (16:58)
[2021-07-10] MEDS ORDERED: EPIDURAL/PCA KEYS XX PRN (16:58)
[2021-07-10] MEDS ORDERED: ePHEDrine SULFATE 25 MG/5 ML(5MG/ML) SYRINGE IV PRN (16:58)
[2021-07-10] MEDS ORDERED: LACTATED RINGER'S 1000 ML IV PRN (16:58)
[2021-07-10] MEDS ORDERED: diphenhydrAMINE 50MG/ML VIAL (J1200) IV PRN (16:58)
[2021-07-10] MEDS ORDERED: EPIDURAL COMMENT XX SCH (16:58)
[2021-07-10] MEDS ORDERED: NALOXONE INJ 0.4MG/1ML VIAL (J2310 PER 1MG) IV PRN (16:58)
[2021-07-10] MEDS ORDERED: REFRIGERATOR IV KEYS XX PRN (16:58)
[2021-07-10] MEDS ORDERED: ONDANSETRON 4MG/2ML VIAL IV PRN (16:58)
[2021-07-10] MEDS ORDERED: ACETAMINOPHEN 500 MG TAB PO PRN (18:20)
[2021-07-10] MEDS ORDERED: ursodioL 300 MG CAP PO SCH (21:00)
[2021-07-10] MEDS ORDERED: DOCUSATE SODIUM 100MG CAPSULE PO PRN (22:10)
[2021-07-10] MEDS ORDERED: MEASLES,MUMPS,RUBELLA VACCINE INJ (MMR-II) (90707) SC SCH (22:10)
[2021-07-10] MEDS ORDERED: DIBUCAINE 1% OINTMENT 30GM TOP PRN (22:10)
[2021-07-10] MEDS ORDERED: ACETAMINOPHEN TAB 650MG DOSE (2X325MG) PO PRN (22:10)
[2021-07-10] MEDS ORDERED: IBUPROFEN 600MG TAB PO PRN (22:10)
[2021-07-10] MEDS ORDERED: METHYLERGONOVINE MALEATE 0.2 MG TAB PO PRN (22:10)
[2021-07-10] MEDS ORDERED: RHOGAM 300 MCG (1500 IU) INJ (J2790) IM SCH (22:10)
[2021-07-10] MEDS: IBUPROFEN 800 MG TAB PO PRN (23:48)
[2021-07-10 23:50] LABS: FREE T4 0.98 NG/DL (0.76-1.46)
[2021-07-11] MEDS: diphenhydrAMINE 25MG CAP PO PRN ×2 (00:34→22:24)
[2021-07-11 00:35] VITALS: BP 122/70
[2021-07-11] MEDS: ACETAMINOPHEN 500 MG TAB PO PRN ×3 (05:03→22:25)
[2021-07-11] MEDS ORDERED: LEVOTHYROXINE 25MCG TABLET (0.025MG) PO SCH (06:00)
[2021-07-11 06:09] VITALS: BP 118/70
[2021-07-11] MEDS: IBUPROFEN 800 MG TAB PO PRN ×2 (07:57→18:05)
[2021-07-11] MEDS: PRENATAL VITAMINS CHEWABLE TABLET PO SCH (07:58)
[2021-07-11 18:00] VITALS: BP 116/61
[2021-07-12 06:00] VITALS: BP 130/77
[2021-07-12] MEDS: PRENATAL VITAMINS CHEWABLE TABLET PO SCH (08:13)
[2021-07-12] MEDS: ACETAMINOPHEN 500 MG TAB PO PRN (10:38)
[2021-10-02] MEDS ORDERED: SERT25TA21 PO (14:42)
[2021-10-07] MEDS ORDERED: IBUP1TAB7 PO (14:57)
[2021-10-07] MEDS ORDERED: PERC5TAB12 PO (14:59)
== END 2021-07-12 12:53 | disposition home or self-care (01) | DRG 805 ==
LOC: M LDI 12:40 → M OBS 23:53
PROVIDERS: ADMIT Advanced Practice Midwife; ATTEND Advanced Practice Midwife
PROC: 10E0XZZ Delivery of Products of Conception, External Approach (ICD-10-PCS; principal; 2021-07-10)
PROC: 3E033VJ Introduction of Other Hormone into Peripheral Vein, Percutaneous Approach (ICD-10-PCS; 2021-07-10)
PROC: 10907ZC Drainage of Amniotic Fluid, Therapeutic from Products of Conception, Via Natural or Artificial Opening (ICD-10-PCS; 2021-07-10)
PROC: 0HQ9XZZ Repair Perineum Skin, External Approach (ICD-10-PCS; 2021-07-10)
DX: O26.62 Liver and biliary tract disorders in childbirth (principal); Z37.0 Single live birth; K83.1 Obstruction of bile duct; Z3A.37 37 weeks gestation of pregnancy; O99.284 Endocrine, nutritional and metabolic diseases complicating childbirth; E03.9 Hypothyroidism, unspecified; Z91.14 Patient's other noncompliance with medication regimen; O70.0 First degree perineal laceration during delivery

== ENCOUNTER 2021-08-11 14:39 | Emergency (ER) | payer OTHER ==
[~2021-08-11] VITALS: Ht 165.1 cm; Wt 75.5 kg
[~2021-08-11 14:39] MED LIST changes: +ACET325C5 PO; +MELA10CA PO
[2021-08-11] MEDS ORDERED: AMOX875T2 (14:52)
[2021-08-11 15:43] LABS: BASO % 0.6 % (0.0-1.0); EOS # 0.1 10^3/uL (0.0-0.5); EOS % 2.4 % (0.0-3.0); HEMATOCRIT 41.7 % (36.0-47.0); HEMOGLOBIN 12.5 g/dl (12.0-15.5); LYMPH # 1.8 10^3/uL (1.5-5.0); MEAN CORPUSCULAR HEMOGLOBIN 24.3 pg (27.0-33.0); MONO # 0.5 10^3/uL (0.0-0.8); MONO % 9.9 % (2.0-8.0); NEUTROPHILS # 2.8 10^3/uL (1.5-8.5); NEUTROPHILS % 52.7 % (36.0-66.0); PLATELET COUNT, AUTOMATED 355 10^3/uL (150-450); RED BLOOD COUNT 5.15 10^6/uL (4.00-5.40); WHITE BLOOD COUNT 5.4 10^3/uL (4.0-10.0)
[2021-08-11] MEDS ORDERED: NS 1,000 ML IV ONE (15:45)
[2021-08-11 16:15] LABS: HCG, SERUM QUALITATIVE NEGATIVE (NEGATIVE)
[2021-08-11 16:35] LABS: INR 1.05; PROTHROMBIN TIME 14.1 SECONDS (12.7-14.5)
[2021-08-11 16:36] LABS: PARTIAL THROMBOPLASTIN TIME 30.7 SECONDS (25.9-37.0)
[2021-08-11 16:39] LABS: BLOOD UREA NITROGEN 11 MG/DL (7-18); CARBON DIOXIDE LEVEL 27 MEQ/L (21-32); CHLORIDE LEVEL 109 MEQ/L (98-107); FREE THYROXINE INDEX 3.2 % (1.3-4.8); GLOMERULAR FILTRATION RATE > 60.0 (>60); GLUCOSE, FASTING 85 MG/DL (70-100); POTASSIUM SERUM 4.7 MEQ/L (3.5-5.1); SODIUM LEVEL 139 MEQ/L (136-145); T UPTAKE 32 % (30-39); THYROXINE (T4) 9.9 UG/DL (4.5-12.0)
--- NOTE | 2021-08-11 16:40 | REP ---
INDICATION: AMADOR, blurred vision L eye. COMPARISON: None. TECHNIQUE: CT brain performed in the axial plane. Coronal reconstruction images are performed. FINDINGS: The ventricles are normal in size and position.. There is no midline shift or mass effect. Garcia-white differentiation is well maintained. There is no acute intracranial hemorrhage or extra-axial fluid collection. Bone window examination is unremarkable. The visualized mastoid air cells and paranasal sinuses are clear. The visualized anterior ring of the C1 vertebral body is not fused. IMPRESSION: Negative noncontrast CT brain. <Electronically signed by Shad Garcia > 08/11/21 0029
[2021-08-11] MEDS ORDERED: ISOVUE-370 76% 100ML VIAL As Ordered ONE (16:59)
[2021-08-11 17:05] LABS: ALBUMIN 3.6 GM/DL (3.2-5.2); ALT/SGPT 22 U/L (12-78); BILIRUBIN,DIRECT < 0.1 MG/DL (0.0-0.2); BILIRUBIN,TOTAL 0.2 MG/DL (0.2-1.0); LIPASE 142 U/L (73-393); TOTAL PROTEIN 6.8 GM/DL (6.4-8.2)
[2021-08-11 17:05] LABS: RSV AMPLIFICATION NEGATIVE (NEGATIVE)
--- NOTE | 2021-08-11 21:12 | REPVR ---
PROCEDURE INFORMATION: Exam: MR Head Without Contrast Exam date and time: 08/11/2021 7:44 PM Age: 21 years old Clinical indication: Visual disturbance; Additional info: Mrv pls, , AMADOR, blurred vision TECHNIQUE: Imaging protocol: MR of the head without contrast. COMPARISON: CT Head without contrast 08/11/2021 4:22 PM FINDINGS: No abnormal restriction of diffusion to indicate acute CVA. Midline structures and cerebellar tonsillar position appear normal. Ventricles, cisterns and sulci are symmetric and normal for age. No intracranial mass, midline shift or abnormal extra-axial fluid. No acute intracranial hemorrhage. No evidence of PRES (posterior reversible encephalopathy syndrome). No abnormal white matter signal on FLAIR and T2 sequences. Optic chiasm and pituitary infundibulum appear normal. Normal vascular flow voids in major intracranial arteries and dural venous sinuses. Paranasal sinuses are normally aerated. Mastoid air cells are normally aerated. Optic globes and orbits are unremarkable. IMPRESSION: Unremarkable noncontrast MRI of the brain. Electronically signed by: Keith Morfin On 08/11/2021 21:11:40 PM
--- NOTE | 2021-08-11 21:13 | REPVR ---
PROCEDURE INFORMATION: Exam: MRA Head Without Contrast; Venography Exam date and time: 08/11/2021 7:44 PM Age: 21 years old Clinical indication: Visual disturbance; Other visual defect; Additional info: Mrv pls, , AMADOR, blurred vision TECHNIQUE: Imaging protocol: Magnetic resonance angiography of the head without contrast. Exam focused on the veins. COMPARISON: CT Head without contrast 08/11/2021 4:22 PM FINDINGS: Dural venous sinuses, including the superior sagittal, straight, transverse, and sigmoid sinuses, are patent with normal flow signal. No evidence for thrombosis. Internal cerebral veins and vein of Poncho demonstrate normal flow signal. IMPRESSION: Negative for dural sinus thrombosis. Electronically signed by: Keith Morfin On 08/11/2021 21:12:47 PM
[2021-08-11 22:00] VITALS: BP 130/82
[2021-08-11] MEDS ORDERED: SUMA50TA2 PO (22:00)
--- NOTE | 2021-08-12 19:33 | ECGEPIP ---
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
== END 2021-08-11 22:09 | disposition home or self-care (01) ==
LOC: M ED 14:39
DX: G43.109 Migraine with aura, not intractable, without status migrainosus (principal); E03.9 Hypothyroidism, unspecified; F17.200 Nicotine dependence, unspecified, uncomplicated

== ENCOUNTER → 2021-10-02 | Outpatient (CLI) | payer OTHER ==
[~2021-10-02] MED LIST changes: +AMOX875T2; +SERT25TA21 PO; +SUMA50TA2 PO
== END ==
LOC: M LABSMTC 11:27
PROVIDERS: ATTEND Anesthesiology
DX: Z01.812 Encounter for preprocedural laboratory examination (principal); Z20.822 Contact with and (suspected) exposure to COVID-19

== ENCOUNTER → 2021-10-07 | Day surgery (SDC) | payer OTHER ==
[~2021-10-07] VITALS: Ht 165.1 cm; Wt 78.4 kg
[~2021-10-07] MED LIST changes: +ACETAMINOPHEN 1000MG 100ML IV BTL (OFIRMEV) (J0131 PER 10MG) As Ordered ONE; +BUPIVACAINE HCL 0.25% 30ML VIAL As Ordered ONE; +HYDROmorphone HCL 2MG/ML 1ML VIAL As Ordered ONE; +IBUP1TAB7 PO; +KETOROLAC 30 MG/ML 1ML VIAL IV SCH; +KETOROLAC 60MG 2ML VIAL As Ordered ONE; +LIDOCAINE 1% MDV 20ML VIAL SQ PRN; +LIDOCAINE 2% 100MG/5ML SDV (FOR ANES.) As Ordered ONE; +LR 1,000 ML IV ONE; +LR 1,000 ML IV SCH; +METOCLOPRAMIDE INJ 10MG/2ML VIAL (J2765 PER 1) As Ordered ONE; +METOCLOPRAMIDE INJ 10MG/2ML VIAL (J2765 PER 1) IV PRN; +MIDAZOLAM INJ 2MG/2ML VIAL (J2250 PER 1MG) As Ordered ONE; +ONDANSETRON 4MG/2ML VIAL As Ordered ONE; +ONDANSETRON 4MG/2ML VIAL IV PRN; +PERC5TAB12 PO; +PERCOCET 5MG/325MG TAB PO PRN; +ROCURONIUM BROMIDE 50 MG/5 ML VIAL As Ordered ONE; +SCOPOLAMINE 1MG TRANSDERMAL PATCH As Ordered ONE; +SUGAMMADEX SODIUM 500 MG/5 ML VIAL (BRIDION) As Ordered ONE; +dexameTHASONE 4 MG/ML 1ML VIAL (J1100 PER 1MG) As Ordered ONE; +fentaNYL 100 MCG/2 ML INJECTION As Ordered ONE; +fentaNYL 100 MCG/2 ML INJECTION IV PRN; +propofoL 200 MG/20 ML VIAL As Ordered ONE
[2021-10-07 10:32] LABS: HEMATOCRIT 40.7 % (36.0-47.0); HEMOGLOBIN 12.4 g/dl (12.0-15.5); MEAN CORPUSCULAR HEMOGLOBIN 24.4 pg (27.0-33.0); MEAN CORPUSCULAR HGB CONC 30.5 g/dl (32.0-36.5); PLATELET COUNT, AUTOMATED 369 10^3/uL (150-450); RED BLOOD COUNT 5.09 10^6/uL (4.00-5.40); WHITE BLOOD COUNT 7.1 10^3/uL (4.0-10.0)
[2021-10-07 15:55] VITALS: BP 102/66
== END | disposition home or self-care (01) ==
LOC: M SDC 09:57
PROVIDERS: ATTEND Obstetrics & Gynecology
DX: Z30.2 Encounter for sterilization (principal); F41.9 Anxiety disorder, unspecified; F32.9 Major depressive disorder, single episode, unspecified; Z79.899 Other long term (current) drug therapy; G43.909 Migraine, unspecified, not intractable, without status migrainosus; F17.290 Nicotine dependence, other tobacco product, uncomplicated
CPT/HCPCS: 36415; 58661; 81025; 85027; 86850; 86900; 86901; 88302; J0131; J1100; J1170; J1885; J2250; J2405; J2765; J3010

== ENCOUNTER → 2021-12-07 | Outpatient (CLI) | payer OTHER ==
[~2021-12-07] MED LIST changes: -ACETAMINOPHEN 1000MG 100ML IV BTL (OFIRMEV) (J0131 PER 10MG) As Ordered ONE; -BUPIVACAINE HCL 0.25% 30ML VIAL As Ordered ONE; -HYDROmorphone HCL 2MG/ML 1ML VIAL As Ordered ONE; -KETOROLAC 30 MG/ML 1ML VIAL IV SCH; -KETOROLAC 60MG 2ML VIAL As Ordered ONE; -LIDOCAINE 1% MDV 20ML VIAL SQ PRN; -LIDOCAINE 2% 100MG/5ML SDV (FOR ANES.) As Ordered ONE; -LR 1,000 ML IV ONE; -LR 1,000 ML IV SCH; -METOCLOPRAMIDE INJ 10MG/2ML VIAL (J2765 PER 1) As Ordered ONE; -METOCLOPRAMIDE INJ 10MG/2ML VIAL (J2765 PER 1) IV PRN; -MIDAZOLAM INJ 2MG/2ML VIAL (J2250 PER 1MG) As Ordered ONE; -ONDANSETRON 4MG/2ML VIAL As Ordered ONE; -ONDANSETRON 4MG/2ML VIAL IV PRN; -PERCOCET 5MG/325MG TAB PO PRN; -ROCURONIUM BROMIDE 50 MG/5 ML VIAL As Ordered ONE; -SCOPOLAMINE 1MG TRANSDERMAL PATCH As Ordered ONE; -SUGAMMADEX SODIUM 500 MG/5 ML VIAL (BRIDION) As Ordered ONE; -dexameTHASONE 4 MG/ML 1ML VIAL (J1100 PER 1MG) As Ordered ONE; -fentaNYL 100 MCG/2 ML INJECTION As Ordered ONE; -fentaNYL 100 MCG/2 ML INJECTION IV PRN; -propofoL 200 MG/20 ML VIAL As Ordered ONE
== END ==
LOC: M PLAIMG 11:40 → M PLALAB 11:40
PROVIDERS: ATTEND Physician Assistant
DX: M41.9 Scoliosis, unspecified (principal); F32.A Depression, unspecified; F41.1 Generalized anxiety disorder; Z86.39 Personal history of other endocrine, nutritional and metabolic disease
CPT/HCPCS: 72052; 72072; 72110; G0463

== ENCOUNTER 2021-12-09 12:14 | Outpatient (RCR) | payer OTHER | END 2021-12-12 | LOC: M PT 12:14 | PROVIDERS: ATTEND Physician Assistant | DX: M41.9 Scoliosis, unspecified (principal) ==

== ENCOUNTER → 2022-01-12 | Outpatient (RCR) | payer OTHER | LOC: M PT 12-16 07:58 | PROVIDERS: ATTEND Physician Assistant | DX: M41.9 Scoliosis, unspecified (principal) ==

== ENCOUNTER 2022-02-04 14:30 | Outpatient (RCR) | payer OTHER | END 2022-02-11 | LOC: M PT 14:30 | PROVIDERS: ATTEND Physician Assistant | DX: M41.9 Scoliosis, unspecified (principal) ==

== ENCOUNTER → 2022-03-11 | Outpatient (REF) | payer OTHER | LOC: M SFHCPLAZ 16:47 | PROVIDERS: ATTEND Physician Assistant | DX: R53.83 Other fatigue (principal) | CPT/HCPCS: 87426; G0463 ==

== ENCOUNTER → 2022-03-12 | Outpatient (CLI) | payer OTHER ==
[2022-03-12 15:38] LABS: BASO % 0.7 % (0.0-1.0); EOS # 0.1 10^3/uL (0.0-0.5); EOS % 1.2 % (0.0-3.0); HEMATOCRIT 39.5 % (36.0-47.0); HEMOGLOBIN 12.4 g/dl (12.0-15.5); LYMPH # 1.9 10^3/uL (1.5-5.0); LYMPH % 31.7 % (24.0-44.0); MEAN CORPUSCULAR HEMOGLOBIN 26.1 pg (27.0-33.0); MEAN CORPUSCULAR HGB CONC 31.4 g/dl (32.0-36.5); MONO # 0.7 10^3/uL (0.0-0.8); MONO % 11.7 % (2.0-8.0); NEUTROPHILS # 3.3 10^3/uL (1.5-8.5); NEUTROPHILS % 54.5 % (36.0-66.0); PLATELET COUNT, AUTOMATED 315 10^3/uL (150-450); RED BLOOD COUNT 4.76 10^6/uL (4.00-5.40)
[2022-03-12 15:46] LABS: MONO REFLEX EBV VCA IgM NEGATIVE (NEGATIVE)
[2022-03-12 16:02] LABS: ALBUMIN 3.9 GM/DL (3.2-5.2); ALT/SGPT 25 U/L (12-78); BILIRUBIN,TOTAL 0.4 MG/DL (0.2-1.0); BLOOD UREA NITROGEN 12 MG/DL (7-18); CALCIUM LEVEL 8.9 MG/DL (8.5-10.1); CARBON DIOXIDE LEVEL 26 MEQ/L (21-32); CHLORIDE LEVEL 107 MEQ/L (98-107); CREATININE FOR GFR 0.96 MG/DL (0.55-1.30); GLOMERULAR FILTRATION RATE > 60.0 (>60); GLUCOSE, FASTING 86 MG/DL (70-100); POTASSIUM SERUM 4.4 MEQ/L (3.5-5.1); SODIUM LEVEL 138 MEQ/L (136-145)
[2022-03-15 13:07] LABS: EBV VIRAL CAPSID AG IgM <36.0 U/mL (0.0-35.9)
== END ==
LOC: M PLALAB 13:22
PROVIDERS: ATTEND Physician Assistant
DX: I88.9 Nonspecific lymphadenitis, unspecified (principal)

== ENCOUNTER → 2022-06-24 | Outpatient (REF) | payer OTHER ==
[2022-06-24 16:17] LABS: BASO # 0.1 10^3/uL (0.0-0.2); BASO % 0.6 % (0.0-1.0); EOS # 0.1 10^3/uL (0.0-0.5); EOS % 1.8 % (0.0-3.0); HEMATOCRIT 43.1 % (36.0-47.0); HEMOGLOBIN 13.2 g/dl (12.0-15.5); LYMPH # 1.6 10^3/uL (1.5-5.0); LYMPH % 20.5 % (24.0-44.0); MEAN CORPUSCULAR HEMOGLOBIN 26.1 pg (27.0-33.0); MEAN CORPUSCULAR HGB CONC 30.6 g/dl (32.0-36.5); MEAN CORPUSCULAR VOLUME 85.3 fl (80.0-96.0); MONO # 0.7 10^3/uL (0.0-0.8); MONO % 8.7 % (2.0-8.0); NEUTROPHILS # 5.3 10^3/uL (1.5-8.5); NEUTROPHILS % 67.9 % (36.0-66.0); PLATELET COUNT, AUTOMATED 274 10^3/uL (150-450); RED BLOOD COUNT 5.05 10^6/uL (4.00-5.40); WHITE BLOOD COUNT 7.9 10^3/uL (4.0-10.0)
[2022-06-24 17:22] LABS: HEMOGLOBIN A1c 4.9 %
[2022-06-24 17:23] LABS: ALBUMIN 3.8 GM/DL (3.2-5.2); ALT/SGPT 45 U/L (12-78); BILIRUBIN,TOTAL 0.6 MG/DL (0.2-1.0); BLOOD UREA NITROGEN 11 MG/DL (7-18); CALCIUM LEVEL 8.9 MG/DL (8.5-10.1); CARBON DIOXIDE LEVEL 24 MEQ/L (21-32); CHLORIDE LEVEL 105 MEQ/L (98-107); CREATININE FOR GFR 1.03 MG/DL (0.55-1.30); FREE T4 0.87 NG/DL (0.76-1.46); GLOMERULAR FILTRATION RATE > 60.0 (>60); GLUCOSE, FASTING 110 MG/DL (70-100); IRON (FE) 83 UG/DL (50-170); LITHIUM LEVEL 0.56 MEQ/L (0.60-1.20); POTASSIUM SERUM 4.4 MEQ/L (3.5-5.1); SODIUM LEVEL 134 MEQ/L (136-145); TOTAL IRON BINDING CAPACITY 395 UG/DL (250-450); TOTAL PROTEIN 7.1 GM/DL (6.4-8.2)
[2022-06-24 18:04] LABS: TOTAL 25(OH) VITAMIN D 22.6 NG/ML (30.0-100.0)
[2022-06-24 18:05] LABS: VITAMIN B12 LEVEL 1054 PG/ML (247-911)
== END ==
LOC: M SFHCADAM 14:04
PROVIDERS: ATTEND Physician Assistant
DX: H93.13 Tinnitus, bilateral (principal); R53.82 Chronic fatigue, unspecified; F32.A Depression, unspecified

== ENCOUNTER → 2022-08-18 | Outpatient (CLI) | payer OTHER ==
[2022-08-18 17:33] LABS: BASO # 0.1 10^3/uL (0.0-0.2); BASO % 0.7 % (0.0-1.0); EOS # 0.1 10^3/uL (0.0-0.5); EOS % 1.4 % (0.0-3.0); HEMATOCRIT 43.4 % (36.0-47.0); HEMOGLOBIN 13.6 g/dl (12.0-15.5); LYMPH # 1.7 10^3/uL (1.5-5.0); LYMPH % 23.3 % (24.0-44.0); MEAN CORPUSCULAR HEMOGLOBIN 27.1 pg (27.0-33.0); MEAN CORPUSCULAR HGB CONC 31.3 g/dl (32.0-36.5); MEAN CORPUSCULAR VOLUME 86.5 fl (80.0-96.0); MONO # 0.7 10^3/uL (0.0-0.8); MONO % 9.4 % (2.0-8.0); NEUTROPHILS # 4.8 10^3/uL (1.5-8.5); NEUTROPHILS % 65.1 % (36.0-66.0); PLATELET COUNT, AUTOMATED 273 10^3/uL (150-450); RED BLOOD COUNT 5.02 10^6/uL (4.00-5.40); WHITE BLOOD COUNT 7.3 10^3/uL (4.0-10.0)
[2022-08-18 17:56] LABS: ALBUMIN 4.3 G/DL (3.2-5.2); ALKALINE PHOSPHATASE 113 U/L (46-116); ALT/SGPT < 9 U/L (7.0-40); AST/SGOT 17 U/L (<34); BILIRUBIN,TOTAL 0.5 MG/DL (0.3-1.2); BLOOD UREA NITROGEN 9 MG/DL (9-23); CALCIUM LEVEL 9.2 MG/DL (8.5-10.1); CARBON DIOXIDE LEVEL 26 MMOL/L (20-31); CHLORIDE LEVEL 104 MMOL/L (98-107); CREATININE FOR GFR 0.94 MG/DL (0.55-1.30); GLOMERULAR FILTRATION RATE > 60.0 (>60); GLUCOSE, FASTING 84 MG/DL (60-100); POTASSIUM SERUM 3.9 MMOL/L (3.5-5.1); SODIUM LEVEL 138 MMOL/L (136-145); THYROID STIMULATING HORMONE 2.954 uIU/ML (0.55-4.78)
[2022-08-18 17:57] LABS: FREE T4 1.01 NG/DL (0.89-1.76)
== END ==
LOC: M LAB 15:59
PROVIDERS: ATTEND Family Medicine
DX: R94.6 Abnormal results of thyroid function studies (principal); R53.83 Other fatigue; Z87.59 Personal history of other complications of pregnancy, childbirth and the puerperium

== ENCOUNTER → 2022-08-20 | Outpatient (CLI) | payer OTHER | LOC: M WHC 08:21 | PROVIDERS: ATTEND Family Medicine | DX: Z87.19 Personal history of other diseases of the digestive system (principal); Z87.59 Personal history of other complications of pregnancy, childbirth and the puerperium; Z90.49 Acquired absence of other specified parts of digestive tract ==

== ENCOUNTER → 2022-09-01 | Outpatient (REF) | payer OTHER | LOC: M SFHCADAM 14:23 | PROVIDERS: ATTEND Physician Assistant | DX: R42 Dizziness and giddiness (principal) ==

== ENCOUNTER 2022-09-05 14:43 | Emergency (ER) | payer OTHER ==
[~2022-09-05] VITALS: Ht 165.1 cm; Wt 72.5 kg
[2022-09-05 14:44] VITALS: BP 112/77
== END 2022-09-05 15:39 | disposition left against medical advice (07) ==
LOC: M ED 14:43
DX: Z53.21 Procedure and treatment not carried out due to patient leaving prior to being seen by health care provider (principal)

== ENCOUNTER → 2022-09-07 | Outpatient (CLI) | payer OTHER | LOC: M RAD 15:24 | PROVIDERS: ATTEND Physician Assistant | DX: R42 Dizziness and giddiness (principal); H93.13 Tinnitus, bilateral ==

== ENCOUNTER → 2022-09-29 | Outpatient (CLI) | payer OTHER ==
[2022-09-29 18:34] LABS: ALBUMIN 3.9 G/DL (3.2-5.2); ALKALINE PHOSPHATASE 133 U/L (46-116); ALT/SGPT 80 U/L (7.0-40); AST/SGOT 62 U/L (<34); BILIRUBIN,TOTAL 0.3 MG/DL (0.3-1.2); BLOOD UREA NITROGEN 8 MG/DL (9-23); CALCIUM LEVEL 9.1 MG/DL (8.5-10.1); CARBON DIOXIDE LEVEL 27 MMOL/L (20-31); CHLORIDE LEVEL 106 MMOL/L (98-107); CREATININE FOR GFR 0.75 MG/DL (0.55-1.30); FREE T4 1.17 NG/DL (0.89-1.76); GLOMERULAR FILTRATION RATE > 60.0 (>60); GLUCOSE, FASTING 84 MG/DL (60-100); HCG, SERUM QUANTITATIVE < 2.6 MIU/ML (<4.2); POTASSIUM SERUM 4.7 MMOL/L (3.5-5.1); PROLACTIN 5.53 NG/ML; SODIUM LEVEL 140 MMOL/L (136-145); THYROID STIMULATING HORMONE 2.721 uIU/ML (0.55-4.78)
[2022-09-29 22:24] LABS: TOTAL PROTEIN 6.5 G/DL (5.7-8.2)
[2022-09-29 22:32] LABS: HEMOGLOBIN A1c 4.8 % (4.0-6.0)
== END ==
LOC: M PLALAB 16:38
PROVIDERS: ATTEND Nurse Practitioner Family
DX: O92.6 Galactorrhea (principal)

== ENCOUNTER → 2022-10-13 | Outpatient (CLI) | payer OTHER ==
[2022-10-13 16:42] LABS: ALBUMIN 4.3 G/DL (3.2-5.2); ALKALINE PHOSPHATASE 122 U/L (46-116); ALT/SGPT 24 U/L (7.0-40); AST/SGOT 19 U/L (<34); BILIRUBIN,TOTAL 0.2 MG/DL (0.3-1.2); BLOOD UREA NITROGEN 8 MG/DL (9-23); CALCIUM LEVEL 9.3 MG/DL (8.5-10.1); CARBON DIOXIDE LEVEL 29 MMOL/L (20-31); CHLORIDE LEVEL 108 MMOL/L (98-107); CREATININE FOR GFR 0.84 MG/DL (0.55-1.30); GLOMERULAR FILTRATION RATE > 60.0 (>60); GLUCOSE, FASTING 80 MG/DL (60-100); HCG, SERUM QUANTITATIVE < 2.6 MIU/ML (<4.2); POTASSIUM SERUM 4.4 MMOL/L (3.5-5.1); SODIUM LEVEL 141 MMOL/L (136-145); TOTAL PROTEIN 6.9 G/DL (5.7-8.2)
[2022-10-13 16:46] LABS: PROLACTIN 8.95 NG/ML
== END ==
LOC: M PLALAB 13:47
PROVIDERS: ATTEND Nurse Practitioner Family
DX: R53.83 Other fatigue (principal); O92.6 Galactorrhea

== ENCOUNTER → 2022-10-15 | Outpatient (CLI) | payer OTHER ==
[2022-10-15 17:23] LABS: TOTAL 25(OH) VITAMIN D 24.2 NG/ML (20.0-100.0)
[2022-10-15 17:30] LABS: C REACTIVE PROTEIN QUANTITATIV < 0.40 MG/DL (<1.0)
== END ==
LOC: M PLALAB 15:04
PROVIDERS: ATTEND Physician Assistant
DX: R53.82 Chronic fatigue, unspecified (principal); R42 Dizziness and giddiness; K13.0 Diseases of lips

== ENCOUNTER 2022-11-01 18:39 | Emergency (ER) | payer OTHER ==
[~2022-11-01] VITALS: Ht 165.1 cm; Wt 74.0 kg
[2022-11-01] MEDS ORDERED: HYDR50TA70 (18:53)
[2022-11-01] MEDS ORDERED: BUPR150T12 (18:53)
[2022-11-01] MEDS ORDERED: NATU1TAB5 (18:53)
[2022-11-01 21:36] LABS: BASO % 0.4 % (0.0-1.0); EOS # 0.1 10^3/uL (0.0-0.5); EOS % 1.2 % (0.0-3.0); HEMATOCRIT 45.1 % (36.0-47.0); HEMOGLOBIN 13.6 g/dl (12.0-15.5); LYMPH # 2.3 10^3/uL (1.5-5.0); LYMPH % 29.8 % (24.0-44.0); MEAN CORPUSCULAR HEMOGLOBIN 26.3 pg (27.0-33.0); MEAN CORPUSCULAR HGB CONC 30.2 g/dl (32.0-36.5); MEAN CORPUSCULAR VOLUME 87.2 fl (80.0-96.0); MONO # 0.7 10^3/uL (0.0-0.8); MONO % 9.1 % (2.0-8.0); NEUTROPHILS # 4.6 10^3/uL (1.5-8.5); NEUTROPHILS % 59.2 % (36.0-66.0); PLATELET COUNT, AUTOMATED 254 10^3/uL (150-450); RED BLOOD COUNT 5.17 10^6/uL (4.00-5.40); WHITE BLOOD COUNT 7.7 10^3/uL (4.0-10.0)
[2022-11-01 21:47] LABS: PROTHROMBIN TIME 13.4 SECONDS (12.5-14.5)
[2022-11-01 21:48] LABS: PARTIAL THROMBOPLASTIN TIME 29.4 SECONDS (24.8-34.2)
[2022-11-01 22:01] LABS: LIPASE 43 U/L (12-53)
[2022-11-01 22:06] LABS: ALBUMIN 4.1 G/DL (3.2-5.2); ALKALINE PHOSPHATASE 116 U/L (46-116); ALT/SGPT 12 U/L (7.0-40); AST/SGOT 10 U/L (<34); BILIRUBIN,DIRECT 0.1 MG/DL (<0.4); BILIRUBIN,TOTAL 0.3 MG/DL (0.3-1.2); BLOOD UREA NITROGEN 9 MG/DL (9-23); CALCIUM LEVEL 8.1 MG/DL (8.5-10.1); CARBON DIOXIDE LEVEL 26 MMOL/L (20-31); CHLORIDE LEVEL 107 MMOL/L (98-107); CREATININE FOR GFR 0.91 MG/DL (0.55-1.30); GLOMERULAR FILTRATION RATE > 60.0 (>60); GLUCOSE, FASTING 97 MG/DL (60-100); POTASSIUM SERUM 4.2 MMOL/L (3.5-5.1); SODIUM LEVEL 139 MMOL/L (136-145); TOTAL PROTEIN 6.5 G/DL (5.7-8.2)
[2022-11-01 22:08] LABS: HCG, SERUM QUALITATIVE NEGATIVE (NEGATIVE); RSV AMPLIFICATION NEGATIVE (NEGATIVE)
[2022-11-01] MEDS ORDERED: GI COCKTAIL 50ML BTL(HYOSCYAMINE/MAALOX/LIDOCAINE VISCOUS)(1:3:1) PO ONE (22:40)
[2022-11-01] MEDS ORDERED: ISOVUE-370 76% 100ML VIAL As Ordered ONE (23:20)
[2022-11-02] MEDS ORDERED: KETO10TAB PO (01:43)
[2022-11-02 01:50] VITALS: BP 116/76
[2022-11-02] MEDS ORDERED: KETOROLAC 30 MG/ML 1ML VIAL IV ONE (02:00)
== END 2022-11-02 02:02 | disposition home or self-care (01) ==
LOC: M ED 18:39
DX: K52.9 Noninfective gastroenteritis and colitis, unspecified (principal); I88.0 Nonspecific mesenteric lymphadenitis; F41.9 Anxiety disorder, unspecified; F32.9 Major depressive disorder, single episode, unspecified; F17.200 Nicotine dependence, unspecified, uncomplicated; F12.10 Cannabis abuse, uncomplicated
CPT/HCPCS: 74177; 80048; 80076; 83605; 83690; 84703; 85025; 85610; 85730; 87631; 96374; 99284; J1885; Q9967

== ENCOUNTER 2022-11-03 19:11 | Emergency (ER) | payer OTHER ==
[~2022-11-03] VITALS: Ht 165.1 cm; Wt 75.3 kg
[~2022-11-03 19:11] MED LIST changes: +BUPR150T12; +HYDR50TA70; +KETO10TAB PO; +NATU1TAB5
[2022-11-03] MEDS ORDERED: FAMOTIDINE 20MG/2ML VIAL IVP ONE (20:05)
[2022-11-03] MEDS ORDERED: NS 1,000 ML IV ONE (20:05)
[2022-11-03 20:51] LABS: BASO # 0.1 10^3/uL (0.0-0.2); BASO % 0.6 % (0.0-1.0); EOS # 0.1 10^3/uL (0.0-0.5); HEMATOCRIT 43.3 % (36.0-47.0); HEMOGLOBIN 13.8 g/dl (12.0-15.5); LYMPH # 2.3 10^3/uL (1.5-5.0); MEAN CORPUSCULAR HEMOGLOBIN 27.3 pg (27.0-33.0); MEAN CORPUSCULAR HGB CONC 31.9 g/dl (32.0-36.5); MEAN CORPUSCULAR VOLUME 85.6 fl (80.0-96.0); MONO # 0.8 10^3/uL (0.0-0.8); MONO % 9.8 % (2.0-8.0); NEUTROPHILS # 4.6 10^3/uL (1.5-8.5); NEUTROPHILS % 59.1 % (36.0-66.0); PLATELET COUNT, AUTOMATED 253 10^3/uL (150-450); RED BLOOD COUNT 5.06 10^6/uL (4.00-5.40); WHITE BLOOD COUNT 7.8 10^3/uL (4.0-10.0)
[2022-11-03 21:03] LABS: ERYTHROCYTE SEDIMENTATION RATE 2 mm/hr (0-20); INR 0.95; PARTIAL THROMBOPLASTIN TIME 30.2 SECONDS (24.8-34.2); PROTHROMBIN TIME 12.9 SECONDS (12.5-14.5)
[2022-11-03 21:06] LABS: D-DIMER QUANT < 270 ng/ml (<500)
[2022-11-03 21:23] LABS: LIPASE 37 U/L (12-53)
[2022-11-03 21:25] LABS: ALBUMIN 4.2 G/DL (3.2-5.2); ALKALINE PHOSPHATASE 120 U/L (46-116); ALT/SGPT 14 U/L (7.0-40); AST/SGOT 16 U/L (<34); BILIRUBIN,DIRECT 0.1 MG/DL (<0.4); BILIRUBIN,TOTAL 0.3 MG/DL (0.3-1.2); BLOOD UREA NITROGEN 6 MG/DL (9-23); CALCIUM LEVEL 8.9 MG/DL (8.5-10.1); CARBON DIOXIDE LEVEL 25 MMOL/L (20-31); CHLORIDE LEVEL 110 MMOL/L (98-107); CREATININE FOR GFR 0.77 MG/DL (0.55-1.30); GLOMERULAR FILTRATION RATE > 60.0 (>60); GLUCOSE, FASTING 79 MG/DL (60-100); POTASSIUM SERUM 4.6 MMOL/L (3.5-5.1); SODIUM LEVEL 141 MMOL/L (136-145); TOTAL PROTEIN 6.7 G/DL (5.7-8.2)
[2022-11-03 21:50] LABS: MONO SCRN NEGATIVE (NEGATIVE)
[2022-11-03 22:07] LABS: C REACTIVE PROTEIN QUANTITATIV < 0.40 MG/DL (<1.0)
[2022-11-03 22:19] VITALS: BP 118/71
[2022-11-05 13:38] LABS: GC DNA AMPLIFICATION NEGATIVE (NEGATIVE)
== END 2022-11-03 22:29 | disposition home or self-care (01) ==
LOC: M ED 19:11
DX: R59.9 Enlarged lymph nodes, unspecified (principal); R10.9 Unspecified abdominal pain; F41.9 Anxiety disorder, unspecified; F32.9 Major depressive disorder, single episode, unspecified; F12.10 Cannabis abuse, uncomplicated; Z79.899 Other long term (current) drug therapy
CPT/HCPCS: 80048; 80076; 81001; 83605; 83690; 83880; 85025; 85379; 85610; 85652; 85730; 86140; 86308; 87086; 87810; 87850; 96361; 96374; 99284; S0028

== ENCOUNTER 2022-12-02 18:45 | Emergency (ER) | payer OTHER ==
[~2022-12-02] VITALS: Ht 165.1 cm; Wt 75.0 kg
[2022-12-02] MEDS ORDERED: NS 1,000 ML IV ONE (20:20)
[2022-12-02] MEDS ORDERED: diphenhydrAMINE 50MG/ML VIAL IV STA (20:20)
[2022-12-02] MEDS ORDERED: METOCLOPRAMIDE INJ 10MG/2ML VIAL IV ONE (20:20)
[2022-12-02 20:57] VITALS: BP 127/74
== END 2022-12-02 21:36 | disposition left against medical advice (07) ==
LOC: M ED 18:45
DX: R51.9 Headache, unspecified (principal); Z53.9 Procedure and treatment not carried out, unspecified reason; Z79.899 Other long term (current) drug therapy
CPT/HCPCS: 96361; 96374; 96375; 99284; J1100; J1200; J2765

== ENCOUNTER → 2023-01-04 | Outpatient (CLI) | payer OTHER | LOC: M PLALAB 12:05 | PROVIDERS: ATTEND Physician Assistant | DX: R74.8 Abnormal levels of other serum enzymes (principal) ==

== ENCOUNTER 2023-02-14 12:28 | Emergency (ER) | payer OTHER ==
[~2023-02-14] VITALS: Ht 165.1 cm; Wt 75.0 kg
[~2023-02-14 12:28] MED LIST changes: +PROP20TA72
[2023-02-14 12:30] VITALS: BP 117/75; TEMP 98; O2SAT 98
[2023-02-14 15:39] LABS: HEMATOCRIT 44.5 % (36.0-47.0); HEMOGLOBIN 14.4 g/dl (12.0-15.5); MEAN CORPUSCULAR HEMOGLOBIN 27.7 pg (27.0-33.0); MEAN CORPUSCULAR HGB CONC 32.4 g/dl (32.0-36.5); MEAN CORPUSCULAR VOLUME 85.7 fl (80.0-96.0); PLATELET COUNT, AUTOMATED 270 10^3/uL (150-450); RED BLOOD COUNT 5.19 10^6/uL (4.00-5.40); WHITE BLOOD COUNT 7.3 10^3/uL (4.0-10.0)
[2023-02-14] MEDS: GASTROGRAFIN SOLUTION 30ML PO SCH ×2 (16:01→16:08)
[2023-02-14 16:04] LABS: BLOOD UREA NITROGEN 7 MG/DL (9-23); CALCIUM LEVEL 8.6 MG/DL (8.5-10.1); CARBON DIOXIDE LEVEL 24 MMOL/L (20-31); CHLORIDE LEVEL 109 MMOL/L (98-107); CREATININE FOR GFR 0.77 MG/DL (0.55-1.30); GLOMERULAR FILTRATION RATE > 60.0 (>60); GLUCOSE, FASTING 81 MG/DL (60-100); POTASSIUM SERUM 5.1 MMOL/L (3.5-5.1); SODIUM LEVEL 139 MMOL/L (136-145)
[2023-02-14] MEDS ORDERED: ISOVUE-370 76% 100ML VIAL As Ordered ONE (18:00)
[2023-02-14] MEDS ORDERED: REGL10TA6 PO (18:50)
[2023-02-14] MEDS ORDERED: KETOROLAC 30 MG/ML 1ML VIAL IV ONE (18:55)
== END 2023-02-14 19:00 | disposition home or self-care (01) ==
LOC: M ED 12:28
DX: R10.11 Right upper quadrant pain (principal); F17.200 Nicotine dependence, unspecified, uncomplicated; Z79.899 Other long term (current) drug therapy
CPT/HCPCS: 71046; 74177; 80048; 84702; 85027; 93005; 96374; 99284; J1885; Q9963; Q9967

== ENCOUNTER → 2023-02-16 | Outpatient (REF) | payer OTHER ==
[~2023-02-16] MED LIST changes: +REGL10TA6 PO
[2023-02-16 16:52] LABS: BASO % 0.4 % (0.0-1.0); EOS # 0.1 10^3/uL (0.0-0.5); HEMATOCRIT 43.9 % (36.0-47.0); HEMOGLOBIN 13.7 g/dl (12.0-15.5); LYMPH # 2.2 10^3/uL (1.5-5.0); LYMPH % 30.5 % (24.0-44.0); MEAN CORPUSCULAR HEMOGLOBIN 27.6 pg (27.0-33.0); MEAN CORPUSCULAR HGB CONC 31.2 g/dl (32.0-36.5); MEAN CORPUSCULAR VOLUME 88.3 fl (80.0-96.0); MONO # 0.8 10^3/uL (0.0-0.8); MONO % 11.3 % (2.0-8.0); NEUTROPHILS % 56.7 % (36.0-66.0); PLATELET COUNT, AUTOMATED 274 10^3/uL (150-450); RED BLOOD COUNT 4.97 10^6/uL (4.00-5.40); WHITE BLOOD COUNT 7.1 10^3/uL (4.0-10.0)
[2023-02-16 17:12] LABS: LIPASE 30 U/L (12-53)
[2023-02-16 17:13] LABS: AMYLASE 45 U/L (30-118)
[2023-02-16 17:14] LABS: ALBUMIN 4.1 G/DL (3.2-5.2); ALKALINE PHOSPHATASE 94 U/L (46-116); ALT/SGPT 23 U/L (7.0-40); AST/SGOT 14 U/L (<34); BILIRUBIN,TOTAL 0.5 MG/DL (0.3-1.2); BLOOD UREA NITROGEN 7 MG/DL (9-23); CARBON DIOXIDE LEVEL 27 MMOL/L (20-31); CHLORIDE LEVEL 109 MMOL/L (98-107); CREATININE FOR GFR 0.91 MG/DL (0.55-1.30); GLOMERULAR FILTRATION RATE > 60.0 (>60); GLUCOSE, FASTING 74 MG/DL (60-100); POTASSIUM SERUM 4.1 MMOL/L (3.5-5.1); SODIUM LEVEL 141 MMOL/L (136-145); TOTAL PROTEIN 6.3 G/DL (5.7-8.2)
== END ==
LOC: M SFHCADAM 13:42
PROVIDERS: ATTEND Physician Assistant
DX: K52.9 Noninfective gastroenteritis and colitis, unspecified (principal)

== ENCOUNTER 2024-01-05 12:59 | Emergency (ER) | payer OTHER, SELFPAY ==
[~2024-01-05] VITALS: Ht 165.1 cm; Wt 74.6 kg
[2024-01-05 19:36] VITALS: BP 120/75; TEMP 98.4; O2SAT 99
[2024-01-05] MEDS ORDERED: IBUP-1022 PO (19:54)
== END 2024-01-05 20:06 | disposition home or self-care (01) ==
LOC: M ED 12:59
DX: M79.671 Pain in right foot (principal); M79.672 Pain in left foot; R51.9 Headache, unspecified; M41.9 Scoliosis, unspecified

== ENCOUNTER → 2024-02-03 | Outpatient (CLI) | payer OTHER ==
[~2024-02-03] MED LIST changes: +IBUP-1022 PO; +ONDA-282 PO; -ONDA4TAB6 PO
== END ==
LOC: M RAD 12:11
PROVIDERS: ATTEND Physician Assistant
DX: M79.671 Pain in right foot (principal)

== ENCOUNTER → 2024-02-24 | Outpatient (REF) | payer OTHER | LOC: M SFHCADAM 14:32 | PROVIDERS: ATTEND Physician Assistant | DX: R19.5 Other fecal abnormalities (principal) ==

== ENCOUNTER → 2024-03-29 | Outpatient (CLI) | payer OTHER ==
[2024-03-29 17:47] LABS: BASO # 0.1 10^3/uL (0.0-0.2); BASO % 0.5 % (0.0-1.0); EOS # 0.1 10^3/uL (0.0-0.5); EOS % 0.9 % (0.0-3.0); HEMATOCRIT 43.6 % (36.0-47.0); HEMOGLOBIN 14.4 g/dl (12.0-15.5); LYMPH # 2.5 10^3/uL (1.5-5.0); LYMPH % 25.9 % (24.0-44.0); MEAN CORPUSCULAR HEMOGLOBIN 28.9 pg (27.0-33.0); MEAN CORPUSCULAR VOLUME 87.4 fl (80.0-96.0); MONO % 10.5 % (2.0-8.0); NEUTROPHILS % 61.9 % (36.0-66.0); PLATELET COUNT, AUTOMATED 274 10^3/uL (150-450); RED BLOOD COUNT 4.99 10^6/uL (4.00-5.40); WHITE BLOOD COUNT 9.6 10^3/uL (4.0-10.0)
[2024-03-29 18:17] LABS: ALBUMIN 4.4 G/DL (3.2-5.2); ALKALINE PHOSPHATASE 90 U/L (46-116); ALT/SGPT 15 U/L (7.0-40); AST/SGOT 9 U/L (<34); BILIRUBIN,TOTAL 0.4 MG/DL (0.3-1.2); BLOOD UREA NITROGEN 14 MG/DL (9-23); CALCIUM LEVEL 9.5 MG/DL (8.5-10.1); CARBON DIOXIDE LEVEL 30 MMOL/L (20-31); CHLORIDE LEVEL 106 MMOL/L (98-107); CREATININE FOR GFR 0.91 MG/DL (0.55-1.30); GLOMERULAR FILTRATION RATE > 60.0 (>60); GLUCOSE, FASTING 63 MG/DL (60-100); POTASSIUM SERUM 4.2 MMOL/L (3.5-5.1); SODIUM LEVEL 140 MMOL/L (136-145); THYROID STIMULATING HORMONE 2.779 uIU/ML (0.55-4.78); TOTAL 25(OH) VITAMIN D 28.8 NG/ML (20.0-100.0); TOTAL PROTEIN 7.2 G/DL (5.7-8.2)
[2024-03-29 18:20] LABS: FREE T4 1.31 NG/DL (0.89-1.76)
== END ==
LOC: M PLALAB 15:57
PROVIDERS: ATTEND Physician Assistant
DX: G44.221 Chronic tension-type headache, intractable (principal); E55.9 Vitamin D deficiency, unspecified; R53.83 Other fatigue; Z86.39 Personal history of other endocrine, nutritional and metabolic disease